=== PATIENT | female | born 1955 | race Caucasian/White ===

== ENCOUNTER 2017-02-09 11:17 | Emergency (ER) | payer OTHER ==
[~2017-02-09] VITALS: Ht 162.6 cm; Wt 75.3 kg
[~2017-02-09 11:17] MED LIST: ACET-1256 PO; ADVIN50/60 INH; ALBU1AER9 INH; ALBU1NEB10 INH; ASPI-435 PO; CLOP1TAB54 PO; COD1000C PO; FLUT0.15 NAE; LEVO1TAB33 PO; PRED10TA PO; VERA180T15 PO
[2017-02-09 11:20] VITALS: Ht 162.6 cm; Wt 75.3 kg
[2017-02-09] MEDS ORDERED: SODIUM CHLORIDE 0.9% 1000ML 1,000 ML IV STA (11:46)
[2017-02-09] MEDS ORDERED: IBUPROFEN 800 MG TAB PO STA ×2 (11:46→12:01)
[2017-02-09] MEDS ORDERED: VITA400C3 PO (12:04)
[2017-02-09] MEDS ORDERED: MONT1TAB3 PO (12:04)
[2017-02-09] MEDS ORDERED: CYAN500T PO (12:04)
[2017-02-09] MEDS ORDERED: ASCO10003 PO (12:04)
[2017-02-09] MEDS ORDERED: CHOL1000 PO (12:04)
[2017-02-09] MEDS ORDERED: CALC667C4 PO (12:04)
[2017-02-09] MEDS ORDERED: [UNRECOGNIZED DRUG - CODE] PO (12:06)
[2017-02-09 12:17] LABS: BASO % 0.2 %; BASO ABS # 0.02 K/uL (0-0.2); COMPLETE YES; EOS % 1.7 %; HEMATOCRIT 38.4 % (37-47); IG% 0.1 %; MEAN CELL VOLUME 85.5 fL (80-100); MEAN CORPUSCULAR HEMOGLOBIN 27.4 pg (25-34); MONO % 9.4 %; NEUT % 73.6 %; PLATELET COUNT 254 K/uL (130-400); RED BLOOD COUNT 4.49 M/uL (4.2-5.4); WHITE BLOOD COUNT 9.35 K/uL (4.8-10.8)
--- NOTE | 2017-02-09 12:34 | DIAGNOSTIC IMAGING REPORT ---
CHEST ONE VIEW PORTABLE CLINICAL HISTORY: cough, fevers COMPARISON STUDY: 12/23/2015 FINDINGS: The cardiac and mediastinal contours are normal. There is no evidence of focal pulmonary consolidation. There is no evidence of failure. No pleural effusions are visualized.[ IMPRESSION: No active disease in the chest. Electronically signed by: Omer Dewey M.D. 02/09/2017 12:33 PM Dictated Date/Time: 02/09/2017 12:32 PM
[2017-02-09 12:35] LABS: ALT/SGPT 31 U/L (12-78); AST/SGOT 11 U/L (15-37); BLOOD UREA NITROGEN 10 mg/dl (7-18); BUN/CREATININE RATIO 12.1 (10-20); CALCIUM 9.1 mg/dl (8.5-10.1); CARBON DIOXIDE 30 mmol/L (21-32); CHLORIDE 104 mmol/L (98-107); CREATININE 0.85 mg/dl (0.60-1.20); GLUCOSE 95 mg/dl (70-99); POTASSIUM 4.1 mmol/L (3.5-5.1); SODIUM 140 mmol/L (136-145)
[2017-02-09 12:40] LABS: ALB/GLOB RATIO 0.9 (0.9-2); ALKALINE PHOSPHATASE 112 U/L (45-117)
[2017-02-09] MEDS ORDERED: ACETAMINOPHEN 500 MG TAB PO STA (13:02)
[2017-02-09 13:57] LABS: URINE APPEARANCE CLEAR (CLEAR); URINE BILIRUBIN NEG (NEG); URINE COLOR YELLOW; URINE NITRITE NEG (NEG); URINE PH 7.5 (4.5-7.5); URINE SPECIFIC GRAVITY 1.018 (1.000-1.030); UROBILINOGEN NEG (NEG); ZZUR CULT IF INDIC CLEAN CATCH NO
[2017-02-09 13:58] LABS: MANUAL MICROSCOPIC REQUIRED? NO; REVIEW REQ? NO
--- NOTE | 2017-02-09 14:15 | EMERGENCY ROOM VISIT NOTE ---
History First contact with patient: 11:32 Chief Complaint: FEVER Stated Complaint: FEVER, SWELLING TO THROAT, CHEST DISCOMFORT History of Present Illness The patient is a 61 year old female who presents to the Emergency Room with complaints of flulike symptoms. The patient states that her symptoms started 3 days ago. She has had a sore throat, fever and body aches. The patient was seen at the [facility] walk-in clinic yesterday and had a flu test and strep test. She states she is unsure of the results of this testing. She was prescribed Tamiflu but states that she did not start this medication because her insurance will not cover it. She states that she has had some tightness in her chest. She states that she has been taking Tylenol every 4 hours for her symptoms and fever. She does report that she was up several times last night due to fevers and believes she may have increased frequency of urination. The patient has a mild cough but does have a history of asthma. She denies any headaches, neck pain, abdominal pain, nausea, vomiting or changes in bowel movements. She denies any shortness of breath. Review of Systems A complete 10-point Review of Systems was discussed with the patient, with pertinent positives and negatives listed in the History of Present Illness. All remaining Review of Systems questions can be considered negative unless otherwise specified. Past Medical/Surgical History Medical Problems: (1) Asthma (2) Dyslipidemia (3) GERD (gastroesophageal reflux disease) (4) Hypertension (5) Kidney stones (6) Mitral valve prolapse (7) Stroke Family History Diabetes mellitus FH: cancer FH: lung disease Hypertension Social History Smoking Status: Never Smoker Alcohol Use: none Housing Status: lives with family Occupation Status: employed, disabled Current/Historical Medications Scheduled Albuterol Soln (Ventolin Soln), 1 AMP INH Q4HR PRN Ascorbic Acid (Vitamin C), 1 TAB PO DAILY Aspirin (Aspirin 81), 1 TAB PO DAILY Calcium Acetate (Phoslo 667 Mg), 2 CAPSULES PO QAM Cholecalciferol (Vitamin D3), 1 TAB PO DAILY Clopidogrel Bisulfate (Plavix), 75 MG PO DAILY Cod Liver Oil (Cod Liver Oil 1000 mg), 1,000 MG PO DAILY Cyanocobalamin (Vitamin B-12), 500 MCG PO DAILY Fluticasone Prop/Salmeterol (Advair Diskus 500/50 60 Dose), 1 PUFF INH BID Fluticasone Propionate (Nasal) (Flonase Allergy Relief), 50 MCG KENDRA DAILY Montelukast Sodium (Singulair), 10 MG PO DAILY Phenol (Antiseptic) (Chloraseptic Gargle), 2 SPRAYS PO UD Verapamil Sust Rel (Calan Sr Ext Rel), 180 MG PO DAILY Vitamin E (Vitamin E 400 Iu), 800 INTER.UNIT PO DAILY Scheduled PRN Acetaminophen (Tylenol), 1,000 MG PO Q4H PRN for Pain Albuterol Sulfate (Proair Hfa), 2 PUFFS INH QID PRN for SOB/Wheezing Allergies Coded Allergies: Orphenadrine (Unverified Allergy, Severe, ANAPHYLAXIS, 02/09/17) Sodium Metabisulfite (Unverified Allergy, Severe, ANAPHYLAXIS, 02/09/17) Morphine (Verified Allergy, Unknown, heart problems, 02/09/17) Physical Exam Vital Signs Date Time Temp Pulse Resp B/P Pulse Ox O2 Delivery O2 Flow Rate FiO2 02/09/17 14:35 37.3 77 20 117/73 93 02/09/17 12:58 38.2 84 22 143/76 97 Room Air 02/09/17 12:20 79 02/09/17 11:20 37.9 95 18 141/87 98 Room Air Physical Exam VITALS: Vitals are noted on the nurse's note and reviewed by myself. Vital signs stable. GENERAL: This is a 61-year-old female, in no acute distress, nondiaphoretic, well-developed well-nourished. SKIN: The skin was without rashes, erythema, edema, or bruising. There is no tenting of the skin. Capillary reflex less than 2 seconds. HEAD: Normocephalic atraumatic. EARS: External auditory canals clear, tympanic membranes pearly miller without erythema or effusion bilaterally. EYES: Pupils equal round and reactive to light and accommodation. Conjunctivae without injection, sclerae without icterus. Extraocular movements intact. NOSE: Patent, turbinates without inflammation or discharge. No sinus tenderness. MOUTH: Mucous membranes moist. Tonsils are mildly erythematous without any significant swelling or exudate. NECK: Supple without nuchal rigidity. No lymphadenopathy. No meningismus. HEART: Regular rate and rhythm without murmurs gallops or rubs. LUNGS: Clear to auscultation bilaterally without wheezes, rales or rhonchi. No retractions or accessory muscle use. ABDOMEN: Soft, nontender to palpation.. NEURO: Patient was alert and oriented to person place and time. Medical Decision & Procedures ER Provider Diagnostic Interpretation: CHEST ONE VIEW PORTABLE CLINICAL HISTORY: cough, fevers COMPARISON STUDY: 12/23/2015 FINDINGS: The cardiac and mediastinal contours are normal. There is no evidence of focal pulmonary consolidation. There is no evidence of failure. No pleural effusions are visualized.[ IMPRESSION: No active disease in the chest. Laboratory Results 02/09/17 11:52 Red Blood Count 4.49, Mean Corpuscular Volume 85.5, Mean Corpuscular Hemoglobin 27.4, Mean Corpuscular Hemoglobin Concent 32.0, Mean Platelet Volume 10.0, Neutrophils (%) (Auto) 73.6, Lymphocytes (%) (Auto) 15.0, Monocytes (%) (Auto) 9.4, Eosinophils (%) (Auto) 1.7, Basophils (%) (Auto) 0.2, Neutrophils # (Auto) 6.88, Lymphocytes # (Auto) 1.40, Monocytes # (Auto) 0.88, Eosinophils # (Auto) 0.16, Basophils # (Auto) 0.02 02/09/17 11:52 Test 02/09/17 11:52 02/09/17 13:00 White Blood Count 9.35 K/uL (4.8-10.8) Red Blood Count 4.49 M/uL (4.2-5.4) Hemoglobin 12.3 g/dL (12.0-16.0) Hematocrit 38.4 % (37-47) Mean Corpuscular Volume 85.5 fL (80-100) Mean Corpuscular Hemoglobin 27.4 pg (25-34) Mean Corpuscular Hemoglobin Concent 32.0 g/dl (32-36) Platelet Count 254 K/uL (130-400) Mean Platelet Volume 10.0 fL (7.4-10.4) Neutrophils (%) (Auto) 73.6 % Lymphocytes (%) (Auto) 15.0 % Monocytes (%) (Auto) 9.4 % Eosinophils (%) (Auto) 1.7 % Basophils (%) (Auto) 0.2 % Neutrophils # (Auto) 6.88 K/uL (1.4-6.5) Lymphocytes # (Auto) 1.40 K/uL (1.2-3.4) Monocytes # (Auto) 0.88 K/uL (0.11-0.59) Eosinophils # (Auto) 0.16 K/uL (0-0.5) Basophils # (Auto) 0.02 K/uL (0-0.2) RDW Standard Deviation 43.9 fL (36.4-46.3) RDW Coefficient of Variation 14.1 % (11.5-14.5) Immature Granulocyte % (Auto) 0.1 % Immature Granulocyte # (Auto) 0.01 K/uL (0.00-0.02) Anion Gap 6.0 mmol/L (3-11) Est Creatinine Clear Calc Drug Dose 68.2 ml/min Estimated GFR () 85.1 Estimated GFR (Non- 73.4 BUN/Creatinine Ratio 12.1 (10-20) Calcium Level 9.1 mg/dl (8.5-10.1) Total Bilirubin 0.4 mg/dl (0.2-1) Aspartate Amino Transf (AST/SGOT) 11 U/L (15-37) Alanine Aminotransferase (ALT/SGPT) 31 U/L (12-78) Alkaline Phosphatase 112 U/L (45-117) Troponin I < 0.015 ng/ml (0-0.045) Total Protein 8.1 gm/dl (6.4-8.2) Albumin 3.9 gm/dl (3.4-5.0) Globulin 4.2 gm/dl (2.5-4.0) Albumin/Globulin Ratio 0.9 (0.9-2) Monoscreen NEG (NEG) Urine Color YELLOW Urine Appearance CLEAR (CLEAR) Urine pH 7.5 (4.5-7.5) Urine Specific [place] 1.018 (1.000-1.030) Urine Protein NEG (NEG) Urine Glucose (UA) NEG (NEG) Urine Ketones NEG (NEG) Urine Occult Blood NEG (NEG) Urine Nitrite NEG (NEG) Urine Bilirubin NEG (NEG) Urine Urobilinogen NEG (NEG) Urine Leukocyte Esterase TRACE (NEG) Urine WBC (Auto) 1-5 /hpf (0-5) Urine RBC (Auto) 0-4 /hpf (0-4) Urine Hyaline Casts (Auto) 0 /lpf (0-5) Urine Epithelial Cells (Auto) 5-10 /lpf (0-5) Urine Bacteria (Auto) NEG (NEG) Medications Administered Medications (Trade) Dose Ordered Sig/Pedrito Route Start Time Stop Time Status Last Admin Dose Admin Sodium Chloride (Nss 1000ml) 1,000 ml @ 999 mls/hr Q1H1M STAT IV 02/09/17 11:46 02/09/17 12:46 DC 02/09/17 11:54 999 MLS/HR Ibuprofen (Motrin Tab) 800 mg NOW STAT PO 02/09/17 12:01 02/09/17 12:02 DC 02/09/17 12:16 800 MG Acetaminophen (Tylenol Tab) 1,000 mg NOW STAT PO 02/09/17 13:02 02/09/17 13:03 DC 02/09/17 13:05 1,000 MG ECG Rate (beats per minute): 79 Rhythm: normal sinus Findings: no acute ischemic change, no ectopy Medical Decision Differential diagnosis includes influenza, strep pharyngitis, infectious mononucleosis, viral syndrome, pneumonia, among others. The patient was evaluated as above. Labs were drawn and IV access was obtained. Imaging studies were performed and read by radiology as above. The patient was medicated with 1 L normal saline solution, 800 mg ibuprofen and 1 g Tylenol. The patient was reassessed multiple times during their stay in the emergency department and remained in stable condition. The patient is a 61-year-old female who presents today complaining of flulike symptoms. I was able to obtain her records from [facility], which showed that the patient had negative flu and strep test yesterday. Labs today revealed no leukocytosis, anemia or concerning electrolyte abnormalities. Monospot was negative Urinalysis was not suggestive of infection. EKG was interpreted by myself and showed a normal sinus rhythm. Chest x-ray was unremarkable. The patient did feel better after IV hydration and antipyretics. Temperature was rechecked and was within normal limits. The patient likely has a viral illness , uncertain flu, strep and mono testing of all been negative. Conservative measures were discussed and the patient was instructed to follow-up with her primary care provider for further evaluation of these symptoms. She will return here for any worsening of her current condition or new/concerning symptoms. Based on the patient's presentation, lab results, and imaging studies, I feel the patient is stable for outpatient treatment. The patient's case was reviewed with Dr. Howell, ED attending physician, who agreed with my assessment and treatment plan. Discharge instructions were reviewed with the patient. The patient verbalized understanding of my assessment and treatment plan and was discharged home in good condition. Impression Primary Impression: Influenza-like symptoms Departure Information Dispostion Home / Self-Care Condition GOOD Referrals Rosey Davis, (PCP) Forms HOME CARE DOCUMENTATION FORM, IMPORTANT VISIT INFORMATION Patient Instructions My [facility] [address] Additional Instructions Rest and drink fluids. Continue Tylenol as needed for pain and fevers. Call your primary care provider to schedule a follow-up by the end of the week. Return to the emergency department with any new/concerning symptoms.
[2017-02-09 14:35] VITALS: BP 117/73; PULSE 77; TEMP 37.3; O2SAT 93
== END 2017-02-09 14:46 | disposition home or self-care (01) ==
LOC: C.EDB 11:19
DX: R50.9 Fever, unspecified (principal); J02.9 Acute pharyngitis, unspecified; I10 Essential (primary) hypertension; J45.909 Unspecified asthma, uncomplicated; K21.9 Gastro-esophageal reflux disease without esophagitis; E78.5 Hyperlipidemia, unspecified; Z86.73 Personal history of transient ischemic attack (TIA), and cerebral infarction without residual deficits; Z79.82 Long term (current) use of aspirin

== ENCOUNTER 2017-10-25 08:05 | Emergency (ER) | payer OTHER ==
[~2017-10-25] VITALS: Ht 162.6 cm; Wt 73.6 kg
[~2017-10-25 08:05] MED LIST changes: +ASCO10003 PO; +CALC667C4 PO; +CHOL1000 PO; +CYAN500T PO; -LEVO1TAB33 PO; +MONT1TAB3 PO; -PRED10TA PO; +VITA400C3 PO; +[UNRECOGNIZED DRUG - CODE] PO
[2017-10-25 08:11] VITALS: TEMP 37.5; Ht 162.6 cm; Wt 73.6 kg
[2017-10-25] MEDS ORDERED: ACETAMINOPHEN 500 MG TAB PO STA (08:31)
[2017-10-25] MEDS ORDERED: ALBUT/IPRATROP 3MG/0.5MG NEB 3 ML VIAL INH STA ×2 (08:31→09:44)
[2017-10-25] MEDS ORDERED: METHYLPREDNISOLONE 125 MG VIAL IV STA (08:31)
[2017-10-25 08:40] VITALS: O2SAT 96
--- NOTE | 2017-10-25 08:41 | EMERGENCY ROOM VISIT NOTE ---
History Report prepared by Lakeisha: Daniela Flowers Under the Supervision of: Dr. Zaki Friedman M.D. First contact with patient: 08:14 Chief Complaint: ILLNESS Stated Complaint: FEVER/HEADACHE/COLD/CHEST PAIN IN LEFT LUNG History of Present Illness The patient is a 62 year old female with a past medical history of Asthma , dyslipidemia, GERD, hypertension, mitral valve prolapse, 2 mini strokes who presents to the ED with a cc of a persistent productive cough beginning several days ago. Positive fever, headache. She currently rates her discomfort as a 9/ 10 in severity. The patient states that she is a nonsmoker. She states that she is on inhalers for her asthma. The patient states that she has been on Plavix since her Mini strokes. She states that she recently travelled to [place] for a mission trip. She denies any recent antibiotic use. Source of History: patient Onset: several days ago Position: other (global) Quality: other (productive cough) Timing: other (persistent) Associated Symptoms: + fevers, + headache Review of Systems See HPI for pertinent positives and negatives. A total of ten systems were reviewed and were otherwise negative. Past Medical & Surgical Medical Problems: (1) Asthma (2) Dyslipidemia (3) GERD (gastroesophageal reflux disease) (4) Hypertension (5) Kidney stones (6) Mitral valve prolapse (7) Stroke Family History Diabetes mellitus FH: cancer FH: lung disease Hypertension Social History Smoking Status: Never Smoker Alcohol Use: none Housing Status: lives with family Occupation Status: employed, disabled Current/Historical Medications Scheduled Albuterol Hfa (Ventolin Hfa), 2-4 PUFFS INH Q6H Ascorbic Acid (Vitamin C), 1 TAB PO DAILY Aspirin (Aspirin 81), 1 TAB PO DAILY Azithromycin (Zithromax), 250 MG PO DAILY Calcium Acetate (Phoslo 667 Mg), 2 CAPSULES PO QAM Cholecalciferol (Vitamin D3), 1 TAB PO DAILY Clopidogrel Bisulfate (Plavix), 75 MG PO DAILY Cod Liver Oil (Cod Liver Oil 1000 mg), 1,000 MG PO DAILY Cyanocobalamin (Vitamin B-12), 500 MCG PO DAILY Fluticasone Prop/Salmeterol (Advair Diskus 500/50 60 Dose), 1 PUFF INH BID Fluticasone Propionate (Nasal) (Flonase Allergy Relief), 50 MCG KENDRA DAILY Montelukast Sodium (Singulair), 10 MG PO DAILY Phenol (Antiseptic) (Chloraseptic Gargle), 2 SPRAYS PO UD Prednisone (Prednisone), 50 MG PO DAILY Vitamin E (Vitamin E 400 Iu), 800 INTER.UNIT PO DAILY Scheduled PRN Acetaminophen (Tylenol), 1,000 MG PO Q4H PRN for Pain Miscellaneous Medications Verapamil Sust Rel (Calan Sr Ext Rel), 120 MG PO Allergies Coded Allergies: Orphenadrine (Unverified Allergy, Severe, ANAPHYLAXIS, 10/25/17) Sodium Metabisulfite (Unverified Allergy, Severe, ANAPHYLAXIS, 10/25/17) Morphine (Verified Allergy, Unknown, heart problems, 10/25/17) Physical Exam Vital Signs Date Time Temp Pulse Resp B/P (MAP) Pulse Ox O2 Delivery O2 Flow Rate FiO2 10/25/17 11:06 79 18 120/71 96 Room Air 10/25/17 09:50 77 20 101/70 100 Nebulizer 10/25/17 09:00 79 22 130/72 98 Room Air 10/25/17 08:41 87 10/25/17 08:40 97 Room Air 10/25/17 08:40 96 Room Air 10/25/17 08:11 37.5 83 18 128/86 97 Room Air Physical Exam GENERAL: Awake, alert, well-appearing, NAD HENT: Normocephalic, atraumatic. EYES: Normal conjunctiva. Sclera non-icteric. NECK: Supple. No nuchal rigidity. FROM. RESPIRATORY: inspiratory and expiratory wheezes throughout, occasional rhonchi, crackles CARDIAC: RRR, no MRG ABDOMEN: Soft, NTND, BS+ MSK: No chest wall TTP, no LE edema NEURO: GCS 15, CN 2-12 intact, moves all 4s on command SKIN: No rash or jaundice noted. Medical Decision & Procedures ER Provider Diagnostic Interpretation: X-ray: Per my interpretation, radiologist review. CHEST ONE VIEW PORTABLE CLINICAL HISTORY: 62 years-old Female presenting with CHEST PAIN. TECHNIQUE: Portable upright AP view of the chest was obtained. COMPARISON: 02/09/2017. FINDINGS: Atherosclerosis of aortic arch. Mild tortuosity of the descending thoracic aorta. Cardiac silhouette normal in size. Lungs and pleural spaces clear. Osseous structures normal. Upper abdomen normal. IMPRESSION: 1. No acute cardiopulmonary disease. Electronically signed by: Lorenzo Nguyen M.D. 10/25/2017 9:05 AM Dictated Date/Time: 10/25/2017 9:05 AM Laboratory Results 10/25/17 08:45 Red Blood Count 4.34, Mean Corpuscular Volume 88.5, Mean Corpuscular Hemoglobin 28.1, Mean Corpuscular Hemoglobin Concent 31.8, Mean Platelet Volume 10.7, Neutrophils (%) (Auto) 50.5, Lymphocytes (%) (Auto) 28.8, Monocytes (%) (Auto) 16.8, Eosinophils (%) (Auto) 3.3, Basophils (%) (Auto) 0.3, Neutrophils # (Auto ) 1.99, Lymphocytes # (Auto) 1.13, Monocytes # (Auto) 0.66, Eosinophils # (Auto ) 0.13, Basophils # (Auto) 0.01 10/25/17 08:45 Test 10/25/17 08:45 White Blood Count 3.93 K/uL (4.8-10.8) Red Blood Count 4.34 M/uL (4.2-5.4) Hemoglobin 12.2 g/dL (12.0-16.0) Hematocrit 38.4 % (37-47) Mean Corpuscular Volume 88.5 fL (80-100) Mean Corpuscular Hemoglobin 28.1 pg (25-34) Mean Corpuscular Hemoglobin Concent 31.8 g/dl (32-36) Platelet Count 213 K/uL (130-400) Mean Platelet Volume 10.7 fL (7.4-10.4) Neutrophils (%) (Auto) 50.5 % Lymphocytes (%) (Auto) 28.8 % Monocytes (%) (Auto) 16.8 % Eosinophils (%) (Auto) 3.3 % Basophils (%) (Auto) 0.3 % Neutrophils # (Auto) 1.99 K/uL (1.4-6.5) Lymphocytes # (Auto) 1.13 K/uL (1.2-3.4) Monocytes # (Auto) 0.66 K/uL (0.11-0.59) Eosinophils # (Auto) 0.13 K/uL (0-0.5) Basophils # (Auto) 0.01 K/uL (0-0.2) RDW Standard Deviation 45.6 fL (36.4-46.3) RDW Coefficient of Variation 13.9 % (11.5-14.5) Immature Granulocyte % (Auto) 0.3 % Immature Granulocyte # (Auto) 0.01 K/uL (0.00-0.02) Prothrombin Time 10.7 SECONDS (9.0-12.0) Prothromb Time International Ratio 1.0 (0.9-1.1) Activated Partial Thromboplast Time 25.3 SECONDS (21.0-31.0) Partial Thromboplastin Ratio 1.0 Anion Gap 8.0 mmol/L (3-11) Est Creatinine Clear Calc Drug Dose 62.2 ml/min Estimated GFR () 77.8 Estimated GFR (Non- 67.1 BUN/Creatinine Ratio 15.8 (10-20) Calcium Level 8.7 mg/dl (8.5-10.1) Total Bilirubin 0.2 mg/dl (0.2-1) Direct Bilirubin mg/dl (0-0.2) Aspartate Amino Transf (AST/SGOT) 37 U/L (15-37) Alanine Aminotransferase (ALT/SGPT) 42 U/L (12-78) Alkaline Phosphatase 101 U/L (45-117) Troponin I < 0.015 ng/ml (0-0.045) Total Protein 7.7 gm/dl (6.4-8.2) Albumin 3.8 gm/dl (3.4-5.0) Lipase 127 U/L (73-393) Chemistry Specimen Hemolysis Laboratory results reviewed by me Medications Administered Medications (Trade) Dose Ordered Sig/Pedrito Route Start Time Stop Time Status Last Admin Dose Admin Albuterol/ Ipratropium (Duoneb) 3 ml NOW STAT INH 10/25/17 08:31 10/25/17 08:32 DC 10/25/17 09:15 3 ML Acetaminophen (Tylenol Tab) 1,000 mg NOW STAT PO 10/25/17 08:31 10/25/17 08:32 DC 10/25/17 08:59 1,000 MG Azithromycin (Zithromax Tab) 500 mg NOW ONCE PO 10/25/17 08:45 10/25/17 08:46 DC 10/25/17 08:59 500 MG Methylprednisolone Sodium Succinate (Solu-Medrol IV) 125 mg NOW STAT IV 10/25/17 08:31 10/25/17 08:32 DC 10/25/17 09:14 125 MG Albuterol/ Ipratropium (Duoneb) 3 ml ONE STAT INH 10/25/17 09:44 10/25/17 09:46 DC 10/25/17 09:46 3 ML Magnesium Sulfate (Magnesium Sulfate) 1 gm NOW STAT IV 10/25/17 09:44 10/25/17 09:46 DC 10/25/17 09:49 1 GM ECG Indication: chest pain Rate (beats per minute): 74 Rhythm: sinus rhythm Findings: T-wave inversion (V3. lead 3, not in contiguous leads), other ( normal intervals, normal axis, no other STS or TWI) Comparison ECG Date: 02/09/17 Change: no significant change ED Course 0819: The patient was evaluated in room B12A. A complete history and physical exam was performed. 1030: I reevaluated the patient and she is resting comfortably. I discussed the test results with her and I discussed the treatment plan. She verbalized complete understanding and agreement. She is ready to go home. Medical Decision Differential diagnosis: Etiologies such as cardiac ischemia, aortic dissection, pulmonary embolism, pneumonia, pneumothorax, musculoskeletal, infections, pericarditis, myocarditis , esophageal rupture, gastrointestinal, as well as others were entertained. The patient is a 62 year old female with a past medical history of Asthma , dyslipidemia, GERD, hypertension, mitral valve prolapse, 2 mini strokes who presents to the ED with a cc of a persistent productive cough beginning several days ago. Patient was seen and evaluated the bedside. Patient was complaining of some left-sided chest discomfort with a productive sputum. Patient is a history of asthma. Patient did have a recent plane flight. Patient denies any prior history of DVT or PE. Patient does take Plavix daily for prior history of 2 mini strokes without any deficits. Patient has a normal neurologic exam. I believe that given her history and physical is most likely infectious in nature she has had a productive cough. Patient's chest x-ray was clear. Patient did receive DuoNeb's, methylprednisolone, and Zithromax. Patient also did receive magnesium. Patient did so some mild leukopenia. Patient's other blood work is fairly unremarkable. Patient had a nonischemic EKG. Patient's chest x-ray was clear. Upon reassessment the patient's wheezing had improved. The patient was not tachycardic, nor tachypneic, nor hypoxic. She suitable for outpatient follow-up and treatment. Given the patient's history and physical along with a nonischemic EKG and a negative troponin less likely ACS. Wells 0. Less likely PE. Patient was given strict follow-up, discharge, and return precautions. All questions were answered. Patient was deemed suitable for outpatient follow-up at this time. Patient agreed with the plan of care and was safely discharged home. Medication Reconcilliation Current Medication List: was personally reviewed by me Blood Pressure Screening Patient's blood pressure: Normal blood pressure Blood pressure disposition: Did not require urgent referral Impression Primary Impression: Asthma Additional Impression: Bronchitis Scribe Attestation The scribe's documentation has been prepared under my direction and personally reviewed by me in its entirety. I confirm that the note above accurately reflects all work, treatment, procedures, and medical decision making performed by me. Departure Information Dispostion Home / Self-Care Prescriptions Azithromycin (Zithromax) 250 Mg Tab 250 MG PO DAILY for 4 Days, #4 TAB Prov: Zaki Friedman M.D. 10/25/17 Prednisone (PREDNISONE) 50 Mg Tab 50 MG PO DAILY for 4 Days, #4 TAB Prov: Zaki Friedman M.D. 10/25/17 Referrals Rosey Davis DO (PCP) Forms HOME CARE DOCUMENTATION FORM, IMPORTANT VISIT INFORMATION, WORK / SCHOOL INSTRUCTIONS Patient Instructions Asthma - [facility], Bronchitis Acute, My [facility] Additional Instructions Please return to the emergency department if you have worsening or recurrent symptoms not amenable to at-home treatment. Please call for a follow-up appointment with her primary care physician. Please take your medications as prescribed. If you have other concerns and/or complaints please feel free to also call your primary care physician's office or return the ED for further evaluation, management, and treatment. You may take tylenol 650 mg every 6 hours as needed for pain. Consider using your inhaler taking 2 puffs every 6 hours the first day, then one puff every 6 hours the second day, then 1 puffs every 4 hours the third day, and then 1 puff every 6 hours the fourth day. Take your medications as prescribed. If taking an antibiotic consider taking a probiotic and/or eating yogurt, but at the least, please take with food as it can cause upset stomach. When taking your steroids please consider taking them in the morning and with food as they may cause some upset stomach and may make you more energetic. You have been examined and treated today on an emergency basis only. This is not a substitute for, or an effort to provide, complete comprehensive medical care. It is impossible to recognize and treat all injuries or illnesses in a single emergency department visit. It is therefore important that you follow up closely with [facility], your PCP, and/or your specialist(s). Call as soon as possible for an appointment. Thank you for your time and consideration. I look forward to speaking with you again soon. Please don't hesitate to call us if you have any questions. Problem Qualifiers Primary Impression: Asthma Asthma severity: mild Asthma persistence: intermittent Asthma complication type: with acute exacerbation Qualified Codes: J45.21 - Mild intermittent asthma with (acute) exacerbation
[2017-10-25] MEDS ORDERED: AZITHROMYCIN 250 MG TAB PO ONE (08:45)
[2017-10-25 09:06] LABS: BASO % 0.3 %; BASO ABS # 0.01 K/uL (0-0.2); COMPLETE YES; EOS % 3.3 %; HEMATOCRIT 38.4 % (37-47); IG% 0.3 %; LYMPH % 28.8 %; LYMPH ABS # 1.13 K/uL (1.2-3.4); MEAN CELL VOLUME 88.5 fL (80-100); MEAN CORPUSCULAR HEMOGLOBIN 28.1 pg (25-34); MEAN CORPUSCULAR HGB CONC 31.8 g/dl (32-36); MEAN PLATELET VOLUME 10.7 fL (7.4-10.4); MONO % 16.8 %; NEUT % 50.5 %; PLATELET COUNT 213 K/uL (130-400); RED BLOOD COUNT 4.34 M/uL (4.2-5.4); WHITE BLOOD COUNT 3.93 K/uL (4.8-10.8)
--- NOTE | 2017-10-25 09:06 | DIAGNOSTIC IMAGING REPORT ---
CHEST ONE VIEW PORTABLE CLINICAL HISTORY: 62 years-old Female presenting with CHEST PAIN. TECHNIQUE: Portable upright AP view of the chest was obtained. COMPARISON: 02/09/2017. FINDINGS: Atherosclerosis of aortic arch. Mild tortuosity of the descending thoracic aorta. Cardiac silhouette normal in size. Lungs and pleural spaces clear. Osseous structures normal. Upper abdomen normal. IMPRESSION: 1. No acute cardiopulmonary disease. Electronically signed by: Lorenzo Nguyen M.D. 10/25/2017 9:05 AM Dictated Date/Time: 10/25/2017 9:05 AM
[2017-10-25 09:17] LABS: PROTHROMBIN TIME (PATIENT) 10.7 SECONDS (9.0-12.0)
[2017-10-25] MEDS ORDERED: VERA120T2 PO (09:20)
[2017-10-25] MEDS ORDERED: VNTHFA/IN INH (09:20)
[2017-10-25] MEDS ORDERED: MAGNESIUM SULFATE 1GM / D5W 1 GM BAG IV STA (09:44)
[2017-10-25 09:57] LABS: ALKALINE PHOSPHATASE 101 U/L (45-117); ALT/SGPT 42 U/L (12-78); AST/SGOT 37 U/L (15-37); BLOOD UREA NITROGEN 14 mg/dl (7-18); BUN/CREATININE RATIO 15.8 (10-20); CALCIUM 8.7 mg/dl (8.5-10.1); CARBON DIOXIDE 25 mmol/L (21-32); CHLORIDE 105 mmol/L (98-107); CREATININE 0.91 mg/dl (0.60-1.20); GLUCOSE 99 mg/dl (70-99); POTASSIUM 4.2 mmol/L (3.5-5.1); SODIUM 138 mmol/L (136-145)
[2017-10-25] MEDS ORDERED: PRED50TA PO (10:12)
[2017-10-25] MEDS ORDERED: AZIT250T PO (10:12)
[2017-10-25 11:06] VITALS: BP 120/71; PULSE 79; O2SAT 96
== END 2017-10-25 11:24 | disposition home or self-care (01) ==
LOC: C.EDB 08:07
DX: J45.21 Mild intermittent asthma with (acute) exacerbation (principal); J40 Bronchitis, not specified as acute or chronic; E78.5 Hyperlipidemia, unspecified; I10 Essential (primary) hypertension; K21.9 Gastro-esophageal reflux disease without esophagitis; I34.1 Nonrheumatic mitral (valve) prolapse; Z86.73 Personal history of transient ischemic attack (TIA), and cerebral infarction without residual deficits; Z79.01 Long term (current) use of anticoagulants; Z79.82 Long term (current) use of aspirin; Z83.3 Family history of diabetes mellitus; Z82.49 Family history of ischemic heart disease and other diseases of the circulatory system

== ENCOUNTER 2018-01-23 14:35 | Emergency (ER) | payer OTHER ==
[~2018-01-23] VITALS: Ht 162.6 cm; Wt 74.6 kg
[~2018-01-23 14:35] MED LIST changes: -ALBU1AER9 INH; -ALBU1NEB10 INH; +VERA120T2 PO; -VERA180T15 PO; +VNTHFA/IN INH
[2018-01-23 14:41] VITALS: TEMP 36.8; Ht 162.6 cm; Wt 74.6 kg
--- NOTE | 2018-01-23 15:17 | DIAGNOSTIC IMAGING REPORT ---
CHEST ONE VIEW PORTABLE CLINICAL HISTORY: 62 years-old Female presenting with CHEST PAIN. TECHNIQUE: Portable upright AP view of the chest was obtained. COMPARISON: 10/25/2017. FINDINGS: Atherosclerosis of the aortic arch. Cardiac silhouette top normal in size. Lungs and pleural spaces clear. Osseous structures normal. Upper abdomen normal. IMPRESSION: 1. No acute cardiopulmonary disease. Electronically signed by: Lorenzo Nguyen M.D. 01/23/2018 3:15 PM Dictated Date/Time: 01/23/2018 3:15 PM
--- NOTE | 2018-01-23 15:26 | EMERGENCY ROOM VISIT NOTE ---
History Report prepared by Lakeisha: Azael Ortiz Under the Supervision of: Dr. Missael Hsu M.D. First contact with patient: 14:56 Chief Complaint: CHEST PAIN Stated Complaint: CHEST PAIN - TOLD TO COME IN BY PCP Nursing Triage Summary: Patient presents with c/o left sided chest pain that radiates into side and back Referred to ED by PCP States pain began 5 days ago History of Present Illness The patient is a 62 year old female who presents to the Emergency Room with complaints of intermittent chest pain starting 5 days ago that radiates into her left side and her back. The patient states that she last had her chest pain this morning around noon today. The patient states that the pain comes on suddenly and then gets better, and it takes a while for the pain to totally go away. The patient states that the pain has gotten better with Tylenol and aspirin. She additionally notes that this morning she had some weakness, and she feels feverish. She additionally is complaining of some right ankle pain, and she notes that she fell three weeks ago. The patient has a history of a mitral valve prolapse, a pneumothorax, kidney stone, asthma, and TIA. She denies any history of heart attacks. The patient states that she took her Plavix this morning as well as her blood pressure medications and her vitamins. She reports that she called her PCP this morning, and they told her to come to the ED for evaluated for her chest pain. Pt denies LOC, headache, chills, diaphoresis, visual changes, neck pain, breathing difficulties, nausea, vomiting , back pain, melena, hematochezia, urinary symptoms, numbness, lymphadenopathy, rash, or other complaints. Source of History: patient Onset: 5 days ago Position: chest Timing: intermittent Modifying Factors (Relieving): tylenol, other (aspirin) Associated Symptoms: + fevers, + back pain, + weakness Note: Associated symptoms: left side pain. Review of Systems See HPI for pertinent positives and negatives. A total of ten systems were reviewed and were otherwise negative. Past Medical & Surgical Medical Problems: (1) Asthma (2) Dyslipidemia (3) GERD (gastroesophageal reflux disease) (4) Hypertension (5) Kidney stones (6) Mitral valve prolapse (7) Stroke Family History Diabetes mellitus FH: cancer FH: lung disease Hypertension Social History Smoking Status: Never Smoker Alcohol Use: none Housing Status: lives with family Occupation Status: employed, disabled Current/Historical Medications Scheduled Albuterol Hfa (Ventolin Hfa), 2-4 PUFFS INH Q6H Ascorbic Acid (Vitamin C), 1 TAB PO DAILY Aspirin (Aspirin 81), 1 TAB PO DAILY Calcium Acetate (Phoslo 667 Mg), 2 CAPSULES PO QAM Cholecalciferol (Vitamin D3), 1 TAB PO DAILY Clopidogrel Bisulfate (Plavix), 75 MG PO DAILY Cod Liver Oil (Cod Liver Oil 1000 mg), 1,000 MG PO DAILY Cyanocobalamin (Vitamin B-12), 500 MCG PO DAILY Fluticasone Prop/Salmeterol (Advair Diskus 500/50 60 Dose), 1 PUFF INH BID Fluticasone Propionate (Nasal) (Flonase Allergy Relief), 50 MCG KENDRA DAILY Montelukast Sodium (Singulair), 10 MG PO DAILY Omeprazole (Prilosec), 20 MG PO DAILY Pravastatin Sodium (Pravastatin Sodium), 40 MG PO DAILY Tiotropium [place] (Spiriva Respimat), 2 PUFFS INH DAILY Verapamil HCl (Verapamil HCl ER), 180 MG PO DAILY Vitamin E (Vitamin E 400 Iu), 800 INTER.UNIT PO DAILY Scheduled PRN Acetaminophen (Tylenol), 1,000 MG PO Q4H PRN for Pain Naproxen Sodium (Naprosyn Ds), 550 MG PO BID PRN for Pain Miscellaneous Medications Verapamil Sust Rel (Calan Sr Ext Rel), 120 MG PO Allergies Coded Allergies: Orphenadrine (Unverified Allergy, Severe, ANAPHYLAXIS, 01/23/18) Sodium Metabisulfite (Unverified Allergy, Severe, ANAPHYLAXIS, 01/23/18) Morphine (Verified Allergy, Unknown, heart problems, 01/23/18) Physical Exam Vital Signs Date Time Temp Pulse Resp B/P (MAP) Pulse Ox O2 Delivery O2 Flow Rate FiO2 01/23/18 18:27 67 20 120/72 98 Room Air 01/23/18 17:30 63 20 141/67 98 Room Air 01/23/18 16:27 64 01/23/18 15:52 97 Room Air 01/23/18 15:42 66 18 130/79 97 Room Air 01/23/18 15:40 96 Room Air 01/23/18 14:41 36.8 80 16 136/85 98 Room Air Physical Exam GENERAL: Awake, alert, well-appearing, in no distress HENT: Normocephalic, atraumatic. Oropharynx unremarkable. EYES: Normal conjunctiva. Sclera non-icteric. NECK: Supple. No nuchal rigidity. FROM. No masses. RESPIRATORY: Clear to auscultation. No wheezes. No rales. Normal respiratory effort. CARDIAC: Normal rate. Normal rhythm. No murmurs. No rubs. Extremities warm and well perfused. Pulses equal. No JVD. GI: Soft, non-distended. No tenderness to palpation. No rebound or guarding. No masses. RECTAL: Deferred. MUSCULOSKELETAL: Atraumatic. Chest examination reveals left anterolateral rib tenderness. The back is symmetrical on inspection without obvious abnormality. There is no CVA tenderness to palpation. No joint edema. Tenderness over the right lateral malleolus. LOWER EXTREMITIES: Calves are equal size bilaterally and non-tender. No edema. No discoloration. NEURO: Normal sensorium. No sensory or motor deficits noted. SKIN: No rash or jaundice noted. Medical Decision & Procedures ER Provider Diagnostic Interpretation: Radiology results as stated below per my review and radiologist interpretation: CHEST ONE VIEW PORTABLE CLINICAL HISTORY: 62 years-old Female presenting with CHEST PAIN. TECHNIQUE: Portable upright AP view of the chest was obtained. COMPARISON: 10/25/2017. FINDINGS: Atherosclerosis of the aortic arch. Cardiac silhouette top normal in size. Lungs and pleural spaces clear. Osseous structures normal. Upper abdomen normal. IMPRESSION: 1. No acute cardiopulmonary disease. Electronically signed by: Lorenzo Nguyen M.D. 01/23/2018 3:15 PM Dictated Date/Time: 01/23/2018 3:15 PM R ANKLE MIN 3 VIEWS ROUTINE CLINICAL HISTORY: 62 years-old Female presenting with fell, right lateral malleolus pain, twisting injury. TECHNIQUE: Frontal, mortise, and lateral views of the right ankle were obtained. COMPARISON: None. FINDINGS: Ankle mortise intact. Prominent anterior osteophyte at the tibial plafond. Prominent enthesophyte at the insertion of the Achilles tendon. No acute fracture or malalignment. No radiographic soft tissue abnormality. IMPRESSION: No acute osseous injury. Degenerative changes as above. Electronically signed by: Lorenzo Nguyen M.D. 01/23/2018 3:36 PM Dictated Date/Time: 01/23/2018 3:34 PM Laboratory Results 01/23/18 15:40 Red Blood Count 4.03, Mean Corpuscular Volume 87.8, Mean Corpuscular Hemoglobin 28.8, Mean Corpuscular Hemoglobin Concent 32.8, Mean Platelet Volume 10.4, Neutrophils (%) (Auto) 38.8, Lymphocytes (%) (Auto) 45.1, Monocytes (%) (Auto) 11.7, Eosinophils (%) (Auto) 3.8, Basophils (%) (Auto) 0.2, Neutrophils # (Auto ) 1.97, Lymphocytes # (Auto) 2.28, Monocytes # (Auto) 0.59, Eosinophils # (Auto ) 0.19, Basophils # (Auto) 0.01 01/23/18 15:40 Test 01/23/18 15:40 01/23/18 15:48 01/23/18 17:32 White Blood Count 5.06 K/uL (4.8-10.8) Red Blood Count 4.03 M/uL (4.2-5.4) Hemoglobin 11.6 g/dL (12.0-16.0) Hematocrit 35.4 % (37-47) Mean Corpuscular Volume 87.8 fL (80-100) Mean Corpuscular Hemoglobin 28.8 pg (25-34) Mean Corpuscular Hemoglobin Concent 32.8 g/dl (32-36) Platelet Count 237 K/uL (130-400) Mean Platelet Volume 10.4 fL (7.4-10.4) Neutrophils (%) (Auto) 38.8 % Lymphocytes (%) (Auto) 45.1 % Monocytes (%) (Auto) 11.7 % Eosinophils (%) (Auto) 3.8 % Basophils (%) (Auto) 0.2 % Neutrophils # (Auto) 1.97 K/uL (1.4-6.5) Lymphocytes # (Auto) 2.28 K/uL (1.2-3.4) Monocytes # (Auto) 0.59 K/uL (0.11-0.59) Eosinophils # (Auto) 0.19 K/uL (0-0.5) Basophils # (Auto) 0.01 K/uL (0-0.2) RDW Standard Deviation 45.3 fL (36.4-46.3) RDW Coefficient of Variation 14.0 % (11.5-14.5) Immature Granulocyte % (Auto) 0.4 % Immature Granulocyte # (Auto) 0.02 K/uL (0.00-0.02) Anion Gap 7.0 mmol/L (3-11) Est Creatinine Clear Calc Drug Dose 72.1 ml/min Estimated GFR () 92.3 Estimated GFR (Non- 79.7 BUN/Creatinine Ratio 21.1 (10-20) Calcium Level 9.2 mg/dl (8.5-10.1) Total Bilirubin 0.3 mg/dl (0.2-1) Direct Bilirubin < 0.1 mg/dl (0-0.2) Aspartate Amino Transf (AST/SGOT) 17 U/L (15-37) Alanine Aminotransferase (ALT/SGPT) 28 U/L (12-78) Alkaline Phosphatase 99 U/L (45-117) Total Creatine Kinase 176 U/L (26-192) Creatine Kinase MB 2.3 ng/ml (0.5-3.6) Creatine Kinase MB Ratio 1.3 (0-3.0) Total Protein 7.5 gm/dl (6.4-8.2) Albumin 3.7 gm/dl (3.4-5.0) Lipase 172 U/L (73-393) Bedside D-Dimer 404 ng/mlFEU (0-450) Bedside Troponin I < 0.030 ng/ml (0-0.045) Laboratory results reviewed by me ECG Per My Interpretation Indication: chest pain Rate (beats per minute): 70 Rhythm: normal sinus Findings: no acute ischemic change, no ectopy, other (Normal intervals) ED Course 1508: The patient was evaluated in room C10. A complete history and physical exam was performed. 1648: I reevaluated and updated the patient. She is going to get a repeat troponin 1752: I discussed the patient's case with Dr. Scott Elkins Cardiology, and he said that it is very reasonable to do an outpatient work up, and she can call the office to arrange her stress test as an outpatient. 1806: I reevaluated the patient. Discussed results and discharge instructions: she verbalized understanding and agreement. The patient is ready for discharge and will follow up with her PCP. Medical Decision Prior records/ancillary studies reviewed. Triage Nursing notes reviewed and agree them. The patient's history was concerning for intermittent chest pain. Differential diagnosis: Etiologies such as musculoskeletal, cardiac ischemia, aortic dissection, pulmonary embolism, pneumonia, pneumothorax, infections, pericarditis, myocarditis, esophageal rupture, gastrointestinal, as well as others were entertained. Physical examination: As above. ER treatment provided: No medication given On reassessment the patient felt well. Diagnostic interpretation by me: The electrocardiogram was negative for pathologic change. The labs revealed an unremarkable CBC and chemistry panel. LFTs and lipase negative. A d-dimer was performed and it was negative. Based on Wells criteria and a negative dimer no further imaging for PE was performed. Troponin completely negative 2. Imaging studies: Chest x-ray as above The patient has atypical chest pain. She has pain that does reproduce with palpation of the ribs. She was pain-free until the palpation. On reassessment she was doing well without any symptoms. Consultation: A consultation was placed with the copper plater on-call, Dr. Chavez. He agreed with expedited outpatient workup and asked for her to contact her primary office tomorrow to set up a stress test to the cardiology office. The patient feels very comfortable with this plan. If she worsens in any way she will come back. She will continue her current medications. I gave my usual and customary discussion regarding this issue. By the evaluation outlined above other emergent etiologies such as those listed in the differential, as well as others, were deemed relatively unlikely. The patient was educated about the findings as listed above. All questions were answered and the patient was pleased with the treatment. Return instructions were outlined and the patient was discharged in stable condition. The patient was referred to her PCP and cardiology for follow-up for a recheck of the current condition. Medication Reconcilliation Current Medication List: was personally reviewed by me Blood Pressure Screening Patient's blood pressure: Elevated blood pressure Blood pressure disposition: Referred to PCP Consults Time Called: 174 Consulting Physician: Dr. Scott Elkins Cardiology Returned Call: 175 I discussed the patient's case with Dr. Scott Elkins Cardiology, and he said that it is very reasonable to do an outpatient work up, and she can call the office to arrange her stress test as an outpatient. Impression Primary Impression: Left sided chest pain Scribe Attestation The scribe's documentation has been prepared under my direction and personally reviewed by me in its entirety. I confirm that the note above accurately reflects all work, treatment, procedures, and medical decision making performed by me. Departure Information Dispostion Home / Self-Care Referrals Rosey Davis DO (PCP) Forms Call Back Authorization, HOME CARE DOCUMENTATION FORM, IMPORTANT VISIT INFORMATION Patient Instructions My [facility] Additional Instructions CHEST PAIN INSTRUCTIONS: Acetaminophen(Tylenol) may be used for fever or pain. Use 1000mg every six hours as needed. Avoid using more than 4000mg in a 24 hour period. Rest and drink plenty of fluids as tolerated. Continue current medications. Avoid strenuous activities and anything that worsens your pain. Resume normal activities once your symptoms resolve. Return to the ER immediately for worsening or persistent chest pain, abdominal pain, vomiting, fevers, chest pains, difficulty breathing, worsening of your condition, or as needed. Follow up with your primary physician tomorrow for a recheck of your current condition and to arrange an outpatient stress test this week. Tell the automobile bumper straightener that cardiology was aware of your ER visit and wants a stress test arranged.
--- NOTE | 2018-01-23 15:38 | DIAGNOSTIC IMAGING REPORT ---
R ANKLE MIN 3 VIEWS ROUTINE CLINICAL HISTORY: 62 years-old Female presenting with fell, right lateral malleolus pain, twisting injury. TECHNIQUE: Frontal, mortise, and lateral views of the right ankle were obtained. COMPARISON: None. FINDINGS: Ankle mortise intact. Prominent anterior osteophyte at the tibial plafond. Prominent enthesophyte at the insertion of the Achilles tendon. No acute fracture or malalignment. No radiographic soft tissue abnormality. IMPRESSION: No acute osseous injury. Degenerative changes as above. Electronically signed by: Lorenzo Nguyen M.D. 01/23/2018 3:36 PM Dictated Date/Time: 01/23/2018 3:34 PM
[2018-01-23 15:40] VITALS: O2SAT 96
[2018-01-23 15:57] LABS: BASO % 0.2 %; BASO ABS # 0.01 K/uL (0-0.2); EOS % 3.8 %; EOS ABS # 0.19 K/uL (0-0.5); HEMATOCRIT 35.4 % (37-47); HEMOGLOBIN 11.6 g/dL (12.0-16.0); IG# 0.02 K/uL (0.00-0.02); LYMPH % 45.1 %; LYMPH ABS # 2.28 K/uL (1.2-3.4); MEAN CELL VOLUME 87.8 fL (80-100); MEAN CORPUSCULAR HEMOGLOBIN 28.8 pg (25-34); MEAN CORPUSCULAR HGB CONC 32.8 g/dl (32-36); MEAN PLATELET VOLUME 10.4 fL (7.4-10.4); MONO % 11.7 %; MONO ABS # 0.59 K/uL (0.11-0.59); NEUT % 38.8 %; NEUT ABS # 1.97 K/uL (1.4-6.5); PLATELET COUNT 237 K/uL (130-400); RED CELL DISTRIBUTION WIDTH SD 45.3 fL (36.4-46.3); WHITE BLOOD COUNT 5.06 K/uL (4.8-10.8)
[2018-01-23] MEDS ORDERED: VRPSR180 PO (16:13)
[2018-01-23] MEDS ORDERED: TIOT1AER2 INH (16:13)
[2018-01-23] MEDS ORDERED: OMEP20CA9 PO (16:13)
[2018-01-23] MEDS ORDERED: PRAV40TA2 PO (16:13)
[2018-01-23] MEDS ORDERED: NAPR-1159 PO (16:13)
[2018-01-23 16:16] LABS: ALBUMIN 3.7 gm/dl (3.4-5.0); ALT/SGPT 28 U/L (12-78); BLOOD UREA NITROGEN 17 mg/dl (7-18); CALCIUM 9.2 mg/dl (8.5-10.1); CARBON DIOXIDE 28 mmol/L (21-32); CREATININE 0.79 mg/dl (0.60-1.20); GLUCOSE 96 mg/dl (70-99); LIPASE 172 U/L (73-393); POTASSIUM 3.6 mmol/L (3.5-5.1); SODIUM 139 mmol/L (136-145)
[2018-01-23 16:21] LABS: ALKALINE PHOSPHATASE 99 U/L (45-117); AST/SGOT 17 U/L (15-37); CKMB 2.3 ng/ml (0.5-3.6); TOTAL PROTEIN 7.5 gm/dl (6.4-8.2)
[2018-01-23 18:27] VITALS: BP 120/72; PULSE 67; O2SAT 98
== END 2018-01-23 18:47 | disposition home or self-care (01) ==
LOC: C.EDB 14:36 → C.EDC 18:47
DX: R07.89 Other chest pain (principal); R07.81 Pleurodynia; M25.571 Pain in right ankle and joints of right foot; W19.XXXA Unspecified fall, initial encounter; I10 Essential (primary) hypertension; J45.909 Unspecified asthma, uncomplicated; K21.9 Gastro-esophageal reflux disease without esophagitis; E78.5 Hyperlipidemia, unspecified; I34.1 Nonrheumatic mitral (valve) prolapse; Z79.82 Long term (current) use of aspirin; Z79.02 Long term (current) use of antithrombotics/antiplatelets; Z87.442 Personal history of urinary calculi; Z86.73 Personal history of transient ischemic attack (TIA), and cerebral infarction without residual deficits; Z83.3 Family history of diabetes mellitus; Z82.49 Family history of ischemic heart disease and other diseases of the circulatory system; Z83.6 Family history of other diseases of the respiratory system; Z80.9 Family history of malignant neoplasm, unspecified; Z88.8 Allergy status to other drugs, medicaments and biological substances; Z91.048 Other nonmedicinal substance allergy status; Z88.6 Allergy status to analgesic agent

== ENCOUNTER 2021-09-04 19:17 | Inpatient (IN) ==
[2021-09-04 19:39] LABS: Appearance Urine Clear (Clear); Bacteria Urine Automated Negative (Negative); Bilirubin Urine Negative (Negative); Blood Urine Negative (Negative); Cast Urine Automated 0 /lpf (0-5); Color Urine Yellow; Glucose Urine UA Negative (Negative); Ketones Urine Negative (Negative); Leukocyte Esterase Urine 2+ (Negative); Nitrite Urine Negative (Negative); Protein Urine Negative (Negative); RBC Urine Automated 0-4 /hpf (0-4); Specific Gravity Urine 1.013 (1.000-1.030); Urobilinogen Urine Negative (Negative)
[2021-09-04] MEDS ORDERED: SODIUM CHLORIDE 0.9% 1000ML 1,000 ML IV ONE (22:10)
--- NOTE | 2021-09-04 22:28 | Emergency Department Note ---
Impression & Plan Abdominal pain, LLQ, Diverticulitis large intestine, Allergic reaction ED Provider Note Provider: Marc Brito MD DATE OF SERVICE: 09/04/2021 CHIEF COMPLAINT: Lower abdominal pain HISTORY OF PRESENT ILLNESS: Patient is a 66-year-old female history of kidney stones, hypertension, and CVA presenting here today reporting onset 2 days ago on Tuesday morning of some pain left lower quadrant is worsening. Patient states she is really not had much to eat or drink besides a few crackers today. Denies significant nausea or vomiting however. States she has had some urinary frequency but little output. Patient states he tried some Azo this morning as well as fluids and cranberry juice but this did not seem to help things. Patient reports a history of significant kidney stone requiring surgery in the distant past. Denies any fever or chest pain. Denies shortness of breath. No trauma reported. No pain radiating down the leg.Patient states she did try multiple doses of Tylenol last night last dose around noon today took at least three 1 g doses overnight. REVIEW OF SYSTEMS: A total of 10 review of systems was obtained and negative except as stated above in the HPI. PAST MEDICAL HISTORY: As noted above MEDICATIONS: Reviewed home medications SOCIAL HISTORY: Works at [employer] PHYSICAL EXAM: GENERAL: alert and oriented in no acute distress on stretcher Head: normocephalic and atraumatic EYES: No injection, discharge or icterus. NECK: Trachea midline. LUNGS: Airway patent. No retractions. Breath sounds clear HEART: Regular rate and rhythm. No chest wall tenderness ABDOMEN: Soft with tenderness in the left lower quadrant. No right-sided abdominal tenderness. Some radiation of the pain/tenderness to left flank SKIN: Acyanotic, warm, dry, without rashes EXTREMITIES: Without swelling, tenderness or deformity NEUROLOGICAL: No focal deficits. No aphasia. No facial droop or slurred speech. PDMP was checked without noted issue. Patient's laboratory studies and imaging reviewed. Differential includes Appendicitis, ovarian cyst, ovarian torsion, TOA, PID, infections, diverticulitis, UTI, obstruction, mesenteric ischemia, aortic pathology, inflammatory bowel disease, renal colic, PUD, pancreatitis, biliary pathology, hernia, volvulus, constipation, as well as other pathologies. IMPRESSION/MEDICAL DECISION MAKING: Patient with history of kidney stone now with pain in left lower quadrant some radiation of left flank and some urinary symptoms. Urinalysis questionable for infection but no blood noted. Patient did try Azo and cranberry juice and fluids earlier. Denies nausea or vomiting. Claims pain medication initially. Patient does not wish for further pain medicine on initial evaluation and wished to abstain from Tylenol she took a fair amount overnight. Doubt a significant overdose and this was unintentional but will avoid Tylenol at this point. Patient does not appear grossly septic at this time and is afebrile. Given some fluid hydration. CT the abdomen pelvis was ordered to look for possible kidney stones, diverticulitis, or other pathology causing her symptoms. Lack of radiation down the leg does not seem consistent with sciatica or cauda equina. Blood work here without significant leukocytosis and mild anemia. No significant lecture light abnormalities or evidence of transaminitis or hepatitis. CT of the abdomen pelvis per radiology as detailed below shows finding consistent with uncomplicated diverticulitis. Updated patient and her sister at bedside. Patient still with some pain was finally agreeable to except on Toradol. Given and an empiric dose of ceftriaxone here for broad antimicrobial coverage; she has tolerated amoxicillin before without issue. On reassessment to determine the patient was comfortable to go home, the patient was complaining some itching on her throat and swelling of her lips. The ceftriaxone was about half administered and was stopped by myself immediately on the pump. Benadryl and small amount of Solu-Medrol was ordered for any allergic reaction component to this. Patient declined Solu-Medrol but after the Benadryl states her itching and throat discomfort was improving. Patient did have some dizziness sensation with the Benadryl. Denies any nausea or difficulty breathing. Patient has been on NSAIDs before but also been on amoxicillin before without issues. Patient still with significant abdominal tenderness and now with this new reaction she will require monitoring to ensure improvement and no recurrence as well as a monitoring to ensure a new antibiotic regimen is tolerated. Patient and sister were agreeable with this and the hospitalist was contacted. Patient declines narcotic pain medicines. DIAGNOSIS: Diverticulitis, lower abdominal pain, allergic reaction DISPOSITION: Being evaluated by the hospitalist Patient was agreeable with this plan. CT ABDOMEN & PELVIS With Contrast: Findings most compatible with acute diverticulitis with new focal wall thickening in sigmoid colon and the left lower quadrant with surrounding fat stranding centered at 1 of the diverticula. No loculated fluid collection or extraluminal gas. No evidence of bowel obstruction. Normal appendix. No significant urinary bladder wall thickening. No bladder calculi. No hydronephrosis. Normal enhancement of the kidneys without CT findings to suggest acute pyelonephritis. Small hiatal hernia. Normal gallbladder. No abdominal aortic aneurysm or dissection. Moderate scattered atherosclerotic vascular calcifications. Alice Murguia MD Past Med/Surg History Medical History (Updated 09/05/21 @ 02:21 by Marc Brito M.D.) Asthma Dyslipidemia GERD (gastroesophageal reflux disease) Hypertension Kidney stones Mitral valve prolapse Stroke Family History Other Hypertension Social History Smoking Status: Never smoker Preferred Language: Eritrean marital status: Single Current Living Situation: Family current occupational status: employed Feels Safe at Home: Yes Allergies Allergies Allergy/AdvReac Type Severity Reaction Status Date / Time orphenadrine Allergy Severe ANAPHYLAXIS Verified 09/04/21 22:20 sodium metabisulfite Allergy Severe ANAPHYLAXIS Verified 09/04/21 22:20 ceftriaxone Allergy Intermediate Swelling Verified 09/05/21 02:45 of Lip/Tongue/Throat atorvastatin [From Lipitor] AdvReac Intermediate INSOMNIA,IT Verified 09/04/21 22:20 RAINA morphine AdvReac Intermediate CONFUSION, Verified 09/04/21 22:20 UNSTEADY GAIT, PANIC Home Meds Home Medications Medication Instructions Recorded Confirmed clopidogrel 75 mg tablet (Plavix) 75 mg PO QAM 10/31/18 09/04/21 fluticasone propionate 50 2 spray INTRANASAL QAM PRN 10/31/18 09/04/21 mcg/actuation nasal spray,suspension (Flonase Allergy Relief) montelukast 10 mg tablet 10 mg PO QAM 10/31/18 09/04/21 (Singulair) naproxen sodium 550 mg tablet 550 mg PO BID PRN 10/31/18 09/04/21 omeprazole 20 mg capsule,delayed 20 mg PO DAILYBB 10/31/18 09/04/21 release tiotropium bromide 1.25 2 puff INHALATION QAM 10/31/18 09/04/21 mcg/actuation mist for inhalation (Spiriva Respimat) famotidine 40 mg tablet 40 mg PO HS PRN 03/27/21 09/04/21 pravastatin 40 mg tablet 40 mg PO HS 03/27/21 09/04/21 Turmeric-Curcumin 500 mg PO DAILY 09/04/21 09/04/21 acetaminophen 500 mg tablet 1,000 mg PO DIRECTED PRN 09/04/21 09/04/21 (Tylenol Extra Strength) albuterol sulfate 2.5 mg INHALATION Q4H PRN 09/04/21 09/04/21 albuterol sulfate 90 mcg/actuation 2 puff INHALATION Q6H PRN 09/04/21 09/04/21 aerosol inhaler ascorbic acid (vitamin C) 1,000 mg 1 g PO DAILY 09/04/21 09/04/21 tablet (Vitamin C) aspirin 81 mg tablet,delayed 81 mg PO DAILY 09/04/21 09/04/21 release cholecalciferol (vitamin D3) 125 125 mcg PO DAILY 09/04/21 09/04/21 mcg (5,000 unit) tablet (Vitamin D3) coenzyme Q10 100 mg capsule 100 mg PO DAILY 09/04/21 09/04/21 (CoQ-10) fluticasone 500 mcg-salmeterol 50 1 inh INHALATION BID 09/04/21 09/04/21 mcg/dose blistr powdr for inhalation (Advair Diskus) ibuprofen 200 mg tablet 600 mg PO TID PRN 09/04/21 09/04/21 meclizine 12.5 mg tablet 12.5 mg PO TID PRN 09/04/21 09/04/21 ondansetron HCl 4 mg tablet 4 mg PO Q6H PRN 09/04/21 09/04/21 (Zofran) sucralfate 1 gram tablet (Carafate) 1 g PO ACHS 09/04/21 09/04/21 verapamil 120 mg tablet,extended 120 mg PO DAILY 09/04/21 09/04/21 release vitamin E 400 unit capsule 400 unit PO DAILY 09/04/21 09/04/21 zinc 100 mg tablet 100 mg PO DAILY 09/04/21 09/04/21 Results & Data (ED) Vital Signs Vital Signs - 24 hr 09/04/21 19:22 09/04/21 22:57 09/05/21 02:27 Temperature 36.7 C Temperature Source Temporal Artery Scan Pulse Rate 74 Pulse Rate [Finger] 62 71 Pulse Rhythm [Finger] Regular Pulse Strength [Finger] Normal Respiratory Rate 18 16 20 Respiratory Effort / Characteristics Non-Labored Non-Labored Spontaneous Non-Labored Spontaneous Respiratory Depth Normal Normal Normal Respiratory Pattern Regular Blood Pressure 149/91 H Blood Pressure [Right Arm] 116/65 156/85 H Blood Pressure Mean 110 Blood Pressure Mean [Right Arm] 82 108 Blood Pressure Position [Right Arm] Lying Pulse Oximetry 99 98 99 Oxygen Delivery Method Room Air Room Air Room Air Sepsis Recent Fever Within 48 Hours No Sepsis New/Unexplained Change in Mental Status No Sepsis Action Taken by Nursing No Action Required Laboratory Data Result diagrams: 09/04/21 23:08 09/04/21 23:08 Lab Results 09/04/21 09/04/21 09/04/21 Range/Units 19:30 23:08 23:08 WBC 7.93 (4.8-10.8) K/uL RBC 4.17 L (4.2-5.4) M/uL Hgb 11.9 L (12.0-16.0) g/dL Hct 37.5 (37-47) % MCV 89.9 (80-100) fL MCH 28.5 (25-34) pg MCHC 31.7 L (32-36) g/dL RDW Std Deviation 44.6 (36.4-46.3) fL RDW Coeff of Palmer 13.5 (11.5-14.5) % Plt Count 253 (130-400) K/uL MPV 10.4 (7.4-10.4) fL Immature Gran % (Auto) 0.1 % Neut % (Auto) 57.9 % Lymph % (Auto) 26.5 % Burnet % (Auto) 7.4 % Eos % (Auto) 7.8 % Baso % (Auto) 0.3 % Neut # (Auto) 4.59 (1.4-6.5) K/uL Lymph # (Auto) 2.10 (1.2-3.4) K/uL Burnet # (Auto) 0.59 (0.11-0.59) K/uL Eos # (Auto) 0.62 H (0-0.5) K/uL Baso # (Auto) 0.02 (0-0.2) K/uL Immature Gran # (Auto) 0.01 (0.00-0.02) K/uL Sodium 138 (136-145) mmol/L Potassium 4.0 (3.5-5.1) mmol/L Chloride 105 (98-107) mmol/L Carbon Dioxide 30 (21-32) mmol/L Anion Gap 3.0 (3-11) BUN 13 (7-18) mg/dl Creatinine 0.76 (0.6-1.2) mg/dl Est Cr Clr Drug Dosing 65.7 ml/min Est GFR ( Amer) 94.1 ml/min Est GFR (Non-Af Amer) 81.2 ml/min BUN/Creatinine Ratio 17.7 (10-20) Glucose 116 H (70-99) mg/dl Calcium 9.4 (8.5-10.1) mg/dl Total Bilirubin 0.4 (0.2-1) mg/dl AST 13 L (15-37) U/L ALT 21 (12-78) U/L Alkaline Phosphatase 104 (45-117) U/L Total Protein 7.8 (6.4-8.2) gm/dl Albumin 3.4 (3.4-5.0) gm/dl Globulin 4.4 H (2.5-4.0) gm/dl Albumin/Globulin Ratio 0.8 L (0.9-2) Lipase 120 (73-393) U/L HCG, Qual (Negative) Urine Color Yellow Urine Appearance Clear (Clear) Urine pH 5.0 (4.5-7.5) Ur Specific [place] 1.013 (1.000-1.030) Urine Protein Negative (Negative) Urine Glucose (UA) Negative (Negative) Urine Ketones Negative (Negative) Urine Blood Negative (Negative) Urine Nitrite Negative (Negative) Urine Bilirubin Negative (Negative) Urine Urobilinogen Negative (Negative) Ur Leukocyte Esterase 2+ H (Negative) Urine WBC (Auto) 5-10 H (0-5) /hpf Urine RBC (Auto) 0-4 (0-4) /hpf U Hyaline Cast (Auto) 0 (0-5) /lpf U Epithel Cells (Auto) 5-10 H (0-5) /lpf Urine Bacteria (Auto) Negative (Negative) COVID-19 Eval Order SARS-CoV-2 (PCR) (Negative) 09/04/21 09/04/21 09/04/21 Range/Units 23:08 23:08 23:08 WBC (4.8-10.8) K/uL RBC (4.2-5.4) M/uL Hgb (12.0-16.0) g/dL Hct (37-47) % MCV (80-100) fL MCH (25-34) pg MCHC (32-36) g/dL RDW Std Deviation (36.4-46.3) fL RDW Coeff of Palmer (11.5-14.5) % Plt Count (130-400) K/uL MPV (7.4-10.4) fL Immature Gran % (Auto) % Neut % (Auto) % Lymph % (Auto) % Burnet % (Auto) % Eos % (Auto) % Baso % (Auto) % Neut # (Auto) (1.4-6.5) K/uL Lymph # (Auto) (1.2-3.4) K/uL Burnet # (Auto) (0.11-0.59) K/uL Eos # (Auto) (0-0.5) K/uL Baso # (Auto) (0-0.2) K/uL Immature Gran # (Auto) (0.00-0.02) K/uL Sodium (136-145) mmol/L Potassium (3.5-5.1) mmol/L Chloride (98-107) mmol/L Carbon Dioxide (21-32) mmol/L Anion Gap (3-11) BUN (7-18) mg/dl Creatinine (0.6-1.2) mg/dl Est Cr Clr Drug Dosing ml/min Est GFR ( Amer) ml/min Est GFR (Non-Af Amer) ml/min BUN/Creatinine Ratio (10-20) Glucose (70-99) mg/dl Calcium (8.5-10.1) mg/dl Total Bilirubin (0.2-1) mg/dl AST (15-37) U/L ALT (12-78) U/L Alkaline Phosphatase (45-117) U/L Total Protein (6.4-8.2) gm/dl Albumin (3.4-5.0) gm/dl Globulin (2.5-4.0) gm/dl Albumin/Globulin Ratio (0.9-2) Lipase (73-393) U/L HCG, Qual Negative (Negative) Urine Color Urine Appearance (Clear) Urine pH (4.5-7.5) Ur Specific [place] (1.000-1.030) Urine Protein (Negative) Urine Glucose (UA) (Negative) Urine Ketones (Negative) Urine Blood (Negative) Urine Nitrite (Negative) Urine Bilirubin (Negative) Urine Urobilinogen (Negative) Ur Leukocyte Esterase (Negative) Urine WBC (Auto) (0-5) /hpf Urine RBC (Auto) (0-4) /hpf U Hyaline Cast (Auto) (0-5) /lpf U Epithel Cells (Auto) (0-5) /lpf Urine Bacteria (Auto) (Negative) COVID-19 Eval Order Covid19 at [facility] SARS-CoV-2 (PCR) NEGATIVE (Negative) Administered Medications Discontinued Medications Diphenhydramine HCl (Diphenhydramine 50 Mg/Ml Vial) 50 mg IV NOW STA Stop: 09/05/21 02:09 Last Admin: 09/05/21 02:16 Dose: 50 mg Documented by: [id number] Sodium Chloride (Nss 1000ml) 1,000 mls @ 999 mls/hr IV .Q1H1M ONE Stop: 09/04/21 23:10 Last Infusion: 09/05/21 02:36 Dose: 0 mls/hr Documented by: [id number] Admin: 09/04/21 23:13 Dose: 999 mls/hr Documented by: [id number] Ceftriaxone Sodium (Rocephin) 2,000 mg in 70 mls @ 140 mls/hr IV NOW STA Stop: 09/05/21 01:54 Last Admin: 09/05/21 01:39 Dose: 140 mls/hr Documented by: [id number] Ioversol (Optiray 320 100ml) 96 ml IV ONCE ONE Stop: 09/05/21 00:00 Last Admin: 09/04/21 23:59 Dose: 96 ml Documented by: [id number] Ketorolac Tromethamine (Ketorolac Tromethamine 15 Mg/Ml Vial) 15 mg IV NOW STA Stop: 09/05/21 01:26 Last Admin: 09/05/21 01:39 Dose: 15 mg Documented by: [id number] Discharge Plan Visit Data Chief Complaint: Abdominal Pain Stated Complaint: LOWER LEFT ABD PAIN ED Provider: Marc Brito Discharge Problem: Abdominal pain, LLQ, Diverticulitis large intestine, Allergic reaction Patient Disposition: Being Evaluated by Hospitalist Prescriptions Prescriptions: No Action clopidogrel [Plavix] 75 mg tablet 75 mg PO QAM RF: 0 naproxen sodium 550 mg Tablet 550 mg PO BID PRN (Reason: Pain) RF: 0 omeprazole 20 mg capsule,delayed release(DR/EC) 20 mg PO DAILYBB RF: 0 montelukast [Singulair] 10 mg tablet 10 mg PO QAM RF: 0 fluticasone propionate [Flonase Allergy Relief] 50 mcg/actuation spray,suspension 2 spray Intranasal QAM PRN (Reason: Congestion) RF: 0 Spiriva Respimat 1.25 mcg/actuation mist 2 puff Inhalation QAM RF: 0 pravastatin 40 mg tablet 40 mg PO HS RF: 0 famotidine 40 mg tablet 40 mg PO HS PRN (Reason: Acid Reflux) RF: 0 verapamil 120 mg tablet extended release 120 mg PO DAILY RF: 0 zinc 100 mg Tablet 100 mg PO DAILY RF: 0 ascorbic acid (vitamin C) [Vitamin C] 1,000 mg Tablet 1 g PO DAILY RF: 0 albuterol sulfate 2.5 mg /3 mL (0.083 %) Solution For Nebulization 2.5 mg INHALATION Q4H PRN (Reason: Shortness Of Breath) RF: 0 sucralfate [Carafate] 1 gram Tablet 1 g PO ACHS RF: 0 ondansetron HCl [Zofran] 4 mg Tablet 4 mg PO Q6H PRN (Reason: NAUSEA/VOMITING) RF: 0 meclizine 12.5 mg Tablet 12.5 mg PO TID PRN (Reason: Dizziness) RF: 0 aspirin 81 mg Tablet,Delayed Release (Dr/Ec) 81 mg PO DAILY RF: 0 acetaminophen [Tylenol Extra Strength] 500 mg Tablet 1,000 mg PO DIRECTED PRN (Reason: FEVER/PAIN) RF: 0 fluticasone propion-salmeterol [Advair Diskus] 500-50 mcg/dose Blister With Device 1 inh INHALATION BID RF: 0 ibuprofen 200 mg Tablet 600 mg PO TID PRN (Reason: Pain) RF: 0 albuterol sulfate 90 mcg/actuation HFA aerosol inhaler 2 puff INHALATION Q6H PRN (Reason: WHEEZING/SHORT OF BREATH) RF: 0 vitamin E 400 unit Capsule 400 unit PO DAILY RF: 0 coenzyme Q10 [CoQ-10] 100 mg Capsule 100 mg PO DAILY RF: 0 cholecalciferol (vitamin D3) [Vitamin D3] 125 mcg (5,000 unit) Tablet 125 mcg PO DAILY RF: 0 Turmeric-Curcumin 500 mg PO DAILY RF: 0 Referrals Referrals: Mariluz Carrillo PA-C [Primary Care Provider] - Discharge Problem: Diverticulitis large intestine Qualifiers: Diverticulitis bleeding: without bleeding Diverticulitis complication: without perforation or abscess Qualified Code(s): K57.32 - Diverticulitis of large intestine without perforation or abscess without bleeding Allergic reaction Qualifiers: Encounter type: initial encounter Qualified Code(s): T78.40XA - Allergy, unspecified, initial encounter
[2021-09-04 23:23] LABS: Basophils # (auto) 0.02 K/uL (0-0.2); Basophils % (auto) 0.3 %; Eosinophils # (auto) 0.62 K/uL (0-0.5); Eosinophils % (auto) 7.8 %; Hematocrit (blood only) 37.5 % (37-47); Hemoglobin 11.9 g/dL (12.0-16.0); Immature Granulocytes # (auto) 0.01 K/uL (0.00-0.02); Immature Granulocytes % (auto) 0.1 %; Lymphocytes % (auto) 26.5 %; Mean Corpuscular Hemoglobin 28.5 pg (25-34); Mean Corpuscular Hgb Conc 31.7 g/dL (32-36); Mean Corpuscular Volume 89.9 fL (80-100); Mean Platelet Volume 10.4 fL (7.4-10.4); Monocytes # (auto) 0.59 K/uL (0.11-0.59); Monocytes % (auto) 7.4 %; Neutrophils # (auto) 4.59 K/uL (1.4-6.5); Neutrophils % (auto) 57.9 %; Platelet Count 253 K/uL (130-400); RDW Coefficient of Variation 13.5 % (11.5-14.5); RDW Standard Deviation 44.6 fL (36.4-46.3); Red Blood Count 4.17 M/uL (4.2-5.4); White Blood Count 7.93 K/uL (4.8-10.8)
[2021-09-04 23:35] LABS: Pregnancy Test, Serum Negative (Negative)
[2021-09-04 23:39] LABS: Albumin Level 3.4 gm/dl (3.4-5.0); BUN Creatinine Ratio 17.7 (10-20); Calcium 9.4 mg/dl (8.5-10.1); Creatinine Clr Calc Pharmacy 65.7 ml/min; Est GFR (African American) 94.1 ml/min; Est GFR (Non-African American) 81.2 ml/min
[2021-09-04 23:42] LABS: Albumin Globulin Ratio 0.8 (0.9-2); Bilirubin,Total 0.4 mg/dl (0.2-1); Globulin 4.4 gm/dl (2.5-4.0); Total Protein 7.8 gm/dl (6.4-8.2)
[2021-09-04] MEDS ORDERED: OPTIRAY 320 100ml IV ONE (23:59)
[2021-09-05] MEDS ORDERED: cefTRIAXone SODIUM 2,000 MG/70 ML BAG IV STA (01:25)
[2021-09-05] MEDS ORDERED: KETOROLAC TROMETHAMINE 15 MG/ML VIAL IV STA (01:25)
[2021-09-05] MEDS ORDERED: diphenhydrAMINE 50 MG/ML VIAL IV STA (02:08)
[2021-09-05] MEDS ORDERED: methylPREDNISolone 125 MG/2 ML VIAL IV STA (02:08)
[2021-09-05] MEDS ORDERED: ALBUTEROL 0.083% NEBU SOLN 3 ML VIAL INH PRN (04:30)
[2021-09-05] MEDS ORDERED: MECLIZINE 12.5 MG TAB PO PRN (04:30)
[2021-09-05] MEDS ORDERED: D5W AND NSS 1,000 ML IV SCH (04:30)
[2021-09-05] MEDS ORDERED: FLUTICASONE PROPIONATE NA SPR 16 GM BTL PRN (04:30)
[2021-09-05] MEDS ORDERED: ONDANSETRON INJ 2 MG/ML 2 ML VIAL IV PRN (04:30)
--- NOTE | 2021-09-05 05:41 | History and Physical Report ---
DATE OF ADMISSION: 09/05/2021. CHIEF COMPLAINT: Abdominal pain. HISTORY OF PRESENT ILLNESS: A 66-year-old female with past medical history significant for hyperlipidemia, asthma, chronic allergic rhinitis, history of CVA, hypertension, tricuspid valve regurgitation, GERD, osteoporosis, migraine, who presents with abdominal pain. The patient says the abdominal pain started last Tuesday, but night it got worse, she could not sleep, and as it was not getting better, she came here and found to have acute diverticulitis. Denies any nausea or vomiting. Did not move her bowels yesterday. No blood in the stools. Normal bladder movements. No fevers, no chest pain, no shortness of breath, no cough, no headache, no blurred visions, no runny nose, no sore throat. Currently, resting comfortably and hemodynamically stable. She was given Rocephin in the ER, following which she developed allergic reaction with itching. She was given steroid and Benadryl. Currently, the allergic reaction is improved. ALLERGIES: ORPHENADRINE, SODIUM METABISULFITE, CEFTRIAXONE, ATORVASTATIN, MORPHINE. PAST MEDICAL HISTORY: As mentioned above. PAST SURGICAL HISTORY: Carpal tunnel surgery, colonoscopy, lithotripsy, EGDs. MEDICATIONS: The patient is on Tylenol Extra Strength 1000 mg p.o. b.i.d. p.r.n., albuterol 2.5 mg inhalation q. 4 hours p.r.n., vitamin C 1gm mg p.o. daily, aspirin 81 mg p.o. daily, vitamin D 125 mcg p.o. daily, Plavix 75 mg p.o. daily, Coenzyme Q10 100 mg p.o. daily, famotidine 40 mg p.o. at bedtime p.r.n., Advair Diskus one inhalation b.i.d., Flonase 2 sprays intranasal daily p.r.n., ibuprofen 600 mg p.o. t.i.d. p.r.n., meclizine 12.5 mg p.o. t.i.d. p.r.n., Singulair 10 mg p.o. a.m., omeprazole 20 mg p.o. a.m., Zofran 4 mg p.o. q. 6 hours p.r.n., pravastatin 40 mg p.o. at bedtime, sucralfate 1 gram p.o. a.c. and at bedtime, Spiriva Respimat 2 puffs inhalation in the a.m., verapamil 120 mg p.o. daily, zinc 100 mg p.o. daily. FAMILY HISTORY: Significant for mother had breast cancer, neurological disorder; father had stroke and diabetes; brother had cancer. SOCIAL HISTORY: , no smoking, no alcohol, no drug use. REVIEW OF SYSTEMS: As per HPI. Rest of the review of systems is negative. PHYSICAL EXAMINATION: GENERAL: The patient is of moderate build, not in acute distress. VITAL SIGNS: Temperature 36.7, pulse 71, respiratory rate 20, blood pressure 156/85, and oxygen 99% on room air. HEENT: Pupils equal, round and reactive to light. Oral mucosa moist. NECK: No JVD, no neck masses. CARDIOVASCULAR: S1 and S2 heard. Regular rate and rhythm. No murmur, no gallop. RESPIRATORY SYSTEM: Normal AP diameter. No accessory muscle use. No wheezing, no crackles. ABDOMEN: Soft. Bowel sounds sluggish. Tenderness in left lower quadrant and guarding present. No distention. CENTRAL NERVOUS SYSTEM: Cranial nerves II-XII grossly intact, nonfocal. EXTREMITIES: No edema, no erythema. LABORATORY DATA: WBC 7.9, hemoglobin 11.9, hematocrit 37.5, platelets 253. Sodium 138, potassium 4, chloride 105, bicarbonate 30, BUN 13, creatinine 0.7, serum glucose 116, calcium 9.4, total bilirubin 0.4, AST 13, ALT 21, alkaline phosphatase 104. Lipase 120. HCG qualitative negative. Urinalysis, +2 leukocyte esterase. SARS-CoV-2 PCR negative. IMAGING DATA: CT of abdomen and pelvis shows preliminary report, acute diverticulitis in the sigmoid colon, possible acute pyelonephritis. ASSESSMENT AND PLAN: This is a 66-year-old female who presented with abdominal pain and found to have acute diverticulitis. 1. Acute diverticulitis: The patient says she had a colonoscopy three years ago. Will empirically start on Cipro and Flagyl , IV fluids. Consult surgery in the a.m. Needs to follow up with GI for colonoscopy in two months. 2. Possible urinary tract infection: Follow the cultures. Antibiotics as above. 3. Gastroesophageal reflux disease: Continue home medication. 4. Hyperlipidemia: Continue statin. 5. Asthma: Continue her home inhalers of Singulair. 6. History of hypertension: Continue verapamil. 7. History of cerebrovascular accident: On Plavix and statin. 8. Deep venous thrombosis prophylaxis: Lovenox. DISPOSITION: Closely monitor in the medical floor. PT, OT prior to discharge. Social service to help with discharge planning. Level 1 full code. Job ID: [id number] MTDD
[2021-09-05] MEDS: SODIUM CHLORIDE 0.9% 1000ML 1,000 ML IV SCH ×3 (06:04→22:18)
[2021-09-05] MEDS: metroNIDAZOLE 500 MG/100 ML BAG IV SCH ×3 (06:04→22:18)
[2021-09-05] MEDS: ENOXAPARIN INJ 40 MG/0.4 ML SYR SQ SCH (06:08)
[2021-09-05] MEDS: PANTOprazole 40 MG TAB PO SCH (06:09)
--- NOTE | 2021-09-05 07:10 | CT Scan Report ---
ABDOMEN AND PELVIS CT WITH IV CONTRAST CT DOSE: 399.61 mGy.cm HISTORY: LLQ pain, urinary frequency TECHNIQUE: Multiaxial CT images of the abdomen and pelvis were performed following the use of intrave nous contrast. A dose lowering technique was utilized adhering to the principles of ALARA. COMPARISON STUDY: Abdomen and pelvis CT 02/28/2015. FINDINGS: The lung bases are clear. There is a small hiatus hernia, unchanged. No pneumoperitoneum. N o pneumatosis. No suspicious lytic are blastic osseous lesions. The spleen, adrenal glands, pancreas, gallbladder, and kidneys are unremarkable. No hydronephrosis. The bladder, uterus, bilateral adnexa are within normal limits. No retroperitoneal lymphadenopathy. Mild calcified plaque within the normal caliber abdominal aorta. Stable 1 cm hypodense lesion within the right hepatic lobe. This is likely benign given the long-term stability. No evidence for bowel obstruction. Normal appendix. Focal thick ening within the proximal sigmoid colon within inflamed diverticulum and adjacent pericolonic fat str anding. This is consistent with an acute diverticulitis. No perforation or abscess identified. IMPRESSION: 1. Acute diverticulitis involving the proximal sigmoid colon. No perforation or abscess. Follow up co lonoscopy suggested once the diverticulitis has resolved to exclude the less likely possibility of an underlying colonic lesion. 2. No evidence for bowel obstruction. 3. Normal appendix. 4. No hydronephrosis. 5. Small hiatus hernia. ACT 112: Negative or not required by law. Electronically signed by: Kristofer Mary M.D. 09/05/2021 7:08 AM
[2021-09-05 07:27] LABS: Basophils # (auto) 0.01 K/uL (0-0.2); Basophils % (auto) 0.2 %; Eosinophils # (auto) 0.56 K/uL (0-0.5); Eosinophils % (auto) 10.1 %; Hematocrit (blood only) 35.8 % (37-47); Hemoglobin 11.4 g/dL (12.0-16.0); Immature Granulocytes # (auto) 0.01 K/uL (0.00-0.02); Immature Granulocytes % (auto) 0.2 %; Lymphocytes # (auto) 1.78 K/uL (1.2-3.4); Lymphocytes % (auto) 32.2 %; Mean Corpuscular Hemoglobin 28.6 pg (25-34); Mean Corpuscular Hgb Conc 31.8 g/dL (32-36); Mean Corpuscular Volume 89.7 fL (80-100); Mean Platelet Volume 10.5 fL (7.4-10.4); Monocytes # (auto) 0.43 K/uL (0.11-0.59); Monocytes % (auto) 7.8 %; Neutrophils # (auto) 2.73 K/uL (1.4-6.5); Neutrophils % (auto) 49.5 %; Platelet Count 247 K/uL (130-400); RDW Coefficient of Variation 13.5 % (11.5-14.5); RDW Standard Deviation 44.8 fL (36.4-46.3); Red Blood Count 3.99 M/uL (4.2-5.4); White Blood Count 5.52 K/uL (4.8-10.8)
[2021-09-05 07:52] LABS: BUN Creatinine Ratio 15.2 (10-20); Calcium 8.7 mg/dl (8.5-10.1); Creatinine Clr Calc Pharmacy 76.7 ml/min; Est GFR (African American) 104.9 ml/min; Est GFR (Non-African American) 90.5 ml/min; Magnesium 2.4 mg/dl (1.8-2.4); Potassium 3.6 mmol/L (3.5-5.1)
[2021-09-05] MEDS: SUCRALFATE 1 GM TAB PO SCH ×4 (08:07→20:48)
[2021-09-05] MEDS: CIPROFLOXACIN / D5W 400 MG/200 ML BAG IV SCH ×2 (08:07→18:33)
[2021-09-05] MEDS ORDERED: NON-FORMULARY MEDICATION (Coenzyme Q10 [Coq-10] 100 mg Capsule) PO SCH (09:00)
[2021-09-05] MEDS: FAMOTIDINE 20 MG in SYRINGE 3 ML IV SCH ×2 (09:12→20:48)
[2021-09-05] MEDS: UMECLIDINIUM BROMIDE 62.5MCG/BLISTER 7 PUFFS/INHALER INH SCH ×2 (09:13→18:34)
[2021-09-05] MEDS: FLUTICASONE/VILANTEROL 200/25MCG 14 PUFFS/INHALER INH SCH ×2 (09:13→18:34)
--- NOTE | 2021-09-05 09:49 | Surgery Consultation ---
Date of Consultation September 05, 2021 Assessment & Plan (1) Diverticulitis large intestine: 66-year-old woman with uncomplicated diverticulitis. There is no evidence of perforation on the CT scan. Her white blood cell count is normal. Agree with continued IV antibiotics. She may be switched over to oral antibiotics in the next 24 hours. No requirement for surgical intervention at this time. We will follow along. History of Present Illness Reason for Consultation: Diverticulitis Requesting Physician: Angeles Sims MD Attending Physician: Angeles Sims MD History of Present Illness 66-year-old woman presents with left-sided abdominal pain starting a few days ago. It has continued since that time at the same intensity. It radiates around to her back. She denies nausea or vomiting. She denies changes in bowel habits. She denies fevers or chills. She denies chest pain or shortness of breath. The pain is sharp in character, unrelenting. Allergies Allergy/AdvReac Type Severity Reaction Status Date / Time orphenadrine Allergy Severe ANAPHYLAXIS Verified 09/04/21 22:20 sodium metabisulfite Allergy Severe ANAPHYLAXIS Verified 09/04/21 22:20 ceftriaxone Allergy Intermediate Swelling Verified 09/05/21 02:45 of Lip/Tongue/Throat atorvastatin [From Lipitor] AdvReac Intermediate INSOMNIA,IT Verified 09/04/21 22:20 RAINA morphine AdvReac Intermediate CONFUSION, Verified 09/04/21 22:20 UNSTEADY GAIT, PANIC Home Medications Medication Instructions Recorded Confirmed Type clopidogrel 75 mg tablet (Plavix) 75 mg PO QAM 10/31/18 09/04/21 History fluticasone propionate 50 2 spray INTRANASAL QAM PRN 10/31/18 09/04/21 History mcg/actuation nasal spray,suspension (Flonase Allergy Relief) montelukast 10 mg tablet 10 mg PO QAM 10/31/18 09/04/21 History (Singulair) naproxen sodium 550 mg tablet 550 mg PO BID PRN 10/31/18 09/04/21 History omeprazole 20 mg capsule,delayed 20 mg PO DAILYBB 10/31/18 09/04/21 History release tiotropium bromide 1.25 2 puff INHALATION QAM 10/31/18 09/04/21 History mcg/actuation mist for inhalation (Spiriva Respimat) famotidine 40 mg tablet 40 mg PO HS PRN 03/27/21 09/04/21 History pravastatin 40 mg tablet 40 mg PO HS 03/27/21 09/04/21 History Turmeric-Curcumin 500 mg PO DAILY 09/04/21 09/04/21 History acetaminophen 500 mg tablet 1,000 mg PO DIRECTED PRN 09/04/21 09/04/21 History (Tylenol Extra Strength) albuterol sulfate 2.5 mg INHALATION Q4H PRN 09/04/21 09/04/21 History albuterol sulfate 90 mcg/actuation 2 puff INHALATION Q6H PRN 09/04/21 09/04/21 History aerosol inhaler ascorbic acid (vitamin C) 1,000 mg 1 g PO DAILY 09/04/21 09/04/21 History tablet (Vitamin C) aspirin 81 mg tablet,delayed 81 mg PO DAILY 09/04/21 09/04/21 History release cholecalciferol (vitamin D3) 125 125 mcg PO DAILY 09/04/21 09/04/21 History mcg (5,000 unit) tablet (Vitamin D3) coenzyme Q10 100 mg capsule 100 mg PO DAILY 09/04/21 09/04/21 History (CoQ-10) fluticasone 500 mcg-salmeterol 50 1 inh INHALATION BID 09/04/21 09/04/21 History mcg/dose blistr powdr for inhalation (Advair Diskus) ibuprofen 200 mg tablet 600 mg PO TID PRN 09/04/21 09/04/21 History meclizine 12.5 mg tablet 12.5 mg PO TID PRN 09/04/21 09/04/21 History ondansetron HCl 4 mg tablet 4 mg PO Q6H PRN 09/04/21 09/04/21 History (Zofran) sucralfate 1 gram tablet (Carafate) 1 g PO ACHS 09/04/21 09/04/21 History verapamil 120 mg tablet,extended 120 mg PO DAILY 09/04/21 09/04/21 History release vitamin E 400 unit capsule 400 unit PO DAILY 09/04/21 09/04/21 History zinc 100 mg tablet 100 mg PO DAILY 09/04/21 09/04/21 History Patient History Medical History Asthma Dyslipidemia GERD (gastroesophageal reflux disease) Hypertension Kidney stones Mitral valve prolapse Stroke Family History Other Hypertension Social History Smoking Status: Never smoker Hx Alcohol Use: No Hx Substance Use: No Preferred Language: Arabic 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 Beliefs That Will Affect Care: None marital status: Single Current Living Situation: Family Current Living Situation Comment: takes care of mother current occupational status: employed Feels Safe at Home: Yes Safety Concerns: Feels Safe At This Time Assistive Devices: None Review of Systems Review of Systems: All systems reviewed & are unremarkable except as noted in HPI & below Physical Exam Constitutional: WD/WN, vitals as above Eyes: PERRL, conjunctivae normal, anicteric sclerae Neck: trachea midline, no thyromegaly Respiratory: normal respiratory effort; no respiratory distress and no labored breathing Cardiovascular: Rate/Rhythm: regular rate and regular rhythm Gastrointestinal (Abdomen): Inspection/Auscultation: abdomen normal to inspection; abdomen not distended Percussion/Palpation: + abdomen tender (Moderate TTP in LLQ and LUQ) and abdomen soft; no guarding and abdomen not rigid Musculoskeletal: Extremities: no cyanosis and no clubbing Skin: no rashes, warm and dry Psychiatric: A+Ox3, euthymic affect Results & Data ([facility]) Vital Signs (Past 12 Hours) Vital Signs Temp Pulse Resp BP BP Pulse Ox 09/05/21 07:03 36.6 C 61 16 108/67 96 09/05/21 04:38 36.9 C 64 18 121/73 96 09/05/21 02:27 71 20 156/85 H 99 09/04/21 22:57 62 16 116/65 98 Laboratory Results 09/05/21 09/05/21 09/05/21 Range/Units 07:03 07:03 07:03 WBC 5.52 (4.8-10.8) K/uL RBC 3.99 L (4.2-5.4) M/uL Hgb 11.4 L (12.0-16.0) g/dL Hct 35.8 L (37-47) % MCV 89.7 (80-100) fL MCH 28.6 (25-34) pg MCHC 31.8 L (32-36) g/dL RDW Std Deviation 44.8 (36.4-46.3) fL RDW Coeff of Palmer 13.5 (11.5-14.5) % Plt Count 247 (130-400) K/uL MPV 10.5 H (7.4-10.4) fL Immature Gran % (Auto) 0.2 % Neut % (Auto) 49.5 % Lymph % (Auto) 32.2 % Walsh % (Auto) 7.8 % Eos % (Auto) 10.1 % Baso % (Auto) 0.2 % Neut # (Auto) 2.73 (1.4-6.5) K/uL Lymph # (Auto) 1.78 (1.2-3.4) K/uL Walsh # (Auto) 0.43 (0.11-0.59) K/uL Eos # (Auto) 0.56 H (0-0.5) K/uL Baso # (Auto) 0.01 (0-0.2) K/uL Immature Gran # (Auto) 0.01 (0.00-0.02) K/uL Sodium 139 (136-145) mmol/L Potassium 3.6 (3.5-5.1) mmol/L Chloride 109 H (98-107) mmol/L Carbon Dioxide 25 (21-32) mmol/L Anion Gap 5.0 (3-11) BUN 10 (7-18) mg/dl Creatinine 0.68 (0.6-1.2) mg/dl Est Cr Clr Drug Dosing 76.7 ml/min Est GFR ( Amer) 104.9 ml/min Est GFR (Non-Af Amer) 90.5 ml/min BUN/Creatinine Ratio 15.2 (10-20) Glucose 93 (70-99) mg/dl Calcium 8.7 (8.5-10.1) mg/dl Magnesium 2.4 (1.8-2.4) mg/dl Total Bilirubin (0.2-1) mg/dl AST (15-37) U/L ALT (12-78) U/L Alkaline Phosphatase (45-117) U/L Total Protein (6.4-8.2) gm/dl Albumin (3.4-5.0) gm/dl Globulin (2.5-4.0) gm/dl Albumin/Globulin Ratio (0.9-2) Lipase (73-393) U/L HCG, Qual (Negative) Urine Color Urine Appearance (Clear) Urine pH (4.5-7.5) Ur Specific Mcclure (1.000-1.030) Urine Protein (Negative) Urine Glucose (UA) (Negative) Urine Ketones (Negative) Urine Blood (Negative) Urine Nitrite (Negative) Urine Bilirubin (Negative) Urine Urobilinogen (Negative) Ur Leukocyte Esterase (Negative) Urine WBC (Auto) (0-5) /hpf Urine RBC (Auto) (0-4) /hpf U Hyaline Cast (Auto) (0-5) /lpf U Epithel Cells (Auto) (0-5) /lpf Urine Bacteria (Auto) (Negative) COVID-19 Eval Order SARS-CoV-2 (PCR) (Negative) Hepatitis C Ab Screen Pending 09/04/21 09/04/21 09/04/21 Range/Units 23:08 23:08 23:08 WBC (4.8-10.8) K/uL RBC (4.2-5.4) M/uL Hgb (12.0-16.0) g/dL Hct (37-47) % MCV (80-100) fL MCH (25-34) pg MCHC (32-36) g/dL RDW Std Deviation (36.4-46.3) fL RDW Coeff of Palmer (11.5-14.5) % Plt Count (130-400) K/uL MPV (7.4-10.4) fL Immature Gran % (Auto) % Neut % (Auto) % Lymph % (Auto) % Walsh % (Auto) % Eos % (Auto) % Baso % (Auto) % Neut # (Auto) (1.4-6.5) K/uL Lymph # (Auto) (1.2-3.4) K/uL Walsh # (Auto) (0.11-0.59) K/uL Eos # (Auto) (0-0.5) K/uL Baso # (Auto) (0-0.2) K/uL Immature Gran # (Auto) (0.00-0.02) K/uL Sodium (136-145) mmol/L Potassium (3.5-5.1) mmol/L Chloride (98-107) mmol/L Carbon Dioxide (21-32) mmol/L Anion Gap (3-11) BUN (7-18) mg/dl Creatinine (0.6-1.2) mg/dl Est Cr Clr Drug Dosing ml/min Est GFR ( Amer) ml/min Est GFR (Non-Af Amer) ml/min BUN/Creatinine Ratio (10-20) Glucose (70-99) mg/dl Calcium (8.5-10.1) mg/dl Magnesium (1.8-2.4) mg/dl Total Bilirubin (0.2-1) mg/dl AST (15-37) U/L ALT (12-78) U/L Alkaline Phosphatase (45-117) U/L Total Protein (6.4-8.2) gm/dl Albumin (3.4-5.0) gm/dl Globulin (2.5-4.0) gm/dl Albumin/Globulin Ratio (0.9-2) Lipase (73-393) U/L HCG, Qual Negative (Negative) Urine Color Urine Appearance (Clear) Urine pH (4.5-7.5) Ur Specific Mcclure (1.000-1.030) Urine Protein (Negative) Urine Glucose (UA) (Negative) Urine Ketones (Negative) Urine Blood (Negative) Urine Nitrite (Negative) Urine Bilirubin (Negative) Urine Urobilinogen (Negative) Ur Leukocyte Esterase (Negative) Urine WBC (Auto) (0-5) /hpf Urine RBC (Auto) (0-4) /hpf U Hyaline Cast (Auto) (0-5) /lpf U Epithel Cells (Auto) (0-5) /lpf Urine Bacteria (Auto) (Negative) COVID-19 Eval Order Covid19 at [facility] SARS-CoV-2 (PCR) NEGATIVE (Negative) Hepatitis C Ab Screen 09/04/21 09/04/21 09/04/21 Range/Units 23:08 23:08 19:30 WBC 7.93 (4.8-10.8) K/uL RBC 4.17 L (4.2-5.4) M/uL Hgb 11.9 L (12.0-16.0) g/dL Hct 37.5 (37-47) % MCV 89.9 (80-100) fL MCH 28.5 (25-34) pg MCHC 31.7 L (32-36) g/dL RDW Std Deviation 44.6 (36.4-46.3) fL RDW Coeff of Palmer 13.5 (11.5-14.5) % Plt Count 253 (130-400) K/uL MPV 10.4 (7.4-10.4) fL Immature Gran % (Auto) 0.1 % Neut % (Auto) 57.9 % Lymph % (Auto) 26.5 % Walsh % (Auto) 7.4 % Eos % (Auto) 7.8 % Baso % (Auto) 0.3 % Neut # (Auto) 4.59 (1.4-6.5) K/uL Lymph # (Auto) 2.10 (1.2-3.4) K/uL Walsh # (Auto) 0.59 (0.11-0.59) K/uL Eos # (Auto) 0.62 H (0-0.5) K/uL Baso # (Auto) 0.02 (0-0.2) K/uL Immature Gran # (Auto) 0.01 (0.00-0.02) K/uL Sodium 138 (136-145) mmol/L Potassium 4.0 (3.5-5.1) mmol/L Chloride 105 (98-107) mmol/L Carbon Dioxide 30 (21-32) mmol/L Anion Gap 3.0 (3-11) BUN 13 (7-18) mg/dl Creatinine 0.76 (0.6-1.2) mg/dl Est Cr Clr Drug Dosing 65.7 ml/min Est GFR ( Amer) 94.1 ml/min Est GFR (Non-Af Amer) 81.2 ml/min BUN/Creatinine Ratio 17.7 (10-20) Glucose 116 H (70-99) mg/dl Calcium 9.4 (8.5-10.1) mg/dl Magnesium (1.8-2.4) mg/dl Total Bilirubin 0.4 (0.2-1) mg/dl AST 13 L (15-37) U/L ALT 21 (12-78) U/L Alkaline Phosphatase 104 (45-117) U/L Total Protein 7.8 (6.4-8.2) gm/dl Albumin 3.4 (3.4-5.0) gm/dl Globulin 4.4 H (2.5-4.0) gm/dl Albumin/Globulin Ratio 0.8 L (0.9-2) Lipase 120 (73-393) U/L HCG, Qual (Negative) Urine Color Yellow Urine Appearance Clear (Clear) Urine pH 5.0 (4.5-7.5) Ur Specific Mcclure 1.013 (1.000-1.030) Urine Protein Negative (Negative) Urine Glucose (UA) Negative (Negative) Urine Ketones Negative (Negative) Urine Blood Negative (Negative) Urine Nitrite Negative (Negative) Urine Bilirubin Negative (Negative) Urine Urobilinogen Negative (Negative) Ur Leukocyte Esterase 2+ H (Negative) Urine WBC (Auto) 5-10 H (0-5) /hpf Urine RBC (Auto) 0-4 (0-4) /hpf U Hyaline Cast (Auto) 0 (0-5) /lpf U Epithel Cells (Auto) 5-10 H (0-5) /lpf Urine Bacteria (Auto) Negative (Negative) COVID-19 Eval Order SARS-CoV-2 (PCR) (Negative) Hepatitis C Ab Screen Diagnostic Findings ABDOMEN AND PELVIS CT WITH IV CONTRAST CT DOSE: 399.61 mGy.cm HISTORY: LLQ pain, urinary frequency TECHNIQUE: Multiaxial CT images of the abdomen and pelvis were performed following the use of intravenous contrast. A dose lowering technique was utilized adhering to the principles of ALARA. COMPARISON STUDY: Abdomen and pelvis CT 02/28/2015. FINDINGS: The lung bases are clear. There is a small hiatus hernia, unchanged. No pneumoperitoneum. No pneumatosis. No suspicious lytic are blastic osseous lesions. The spleen, adrenal glands, pancreas, gallbladder, and kidneys are unremarkable. No hydronephrosis. The bladder, uterus, bilateral adnexa are within normal limits. No retroperitoneal lymphadenopathy. Mild calcified plaque within the normal caliber abdominal aorta. Stable 1 cm hypodense lesion within the right hepatic lobe. This is likely benign given the long-term stability. No evidence for bowel obstruction. Normal appendix. Focal thickening within the proximal sigmoid colon within inflamed diverticulum and adjacent pericolonic fat stranding. This is consistent with an acute diverticulitis. No perforation or abscess identified. IMPRESSION: 1. Acute diverticulitis involving the proximal sigmoid colon. No perforation or abscess. Follow up colonoscopy suggested once the diverticulitis has resolved to exclude the less likely possibility of an underlying colonic lesion. 2. No evidence for bowel obstruction. 3. Normal appendix. 4. No hydronephrosis. 5. Small hiatus hernia. (1) Diverticulitis large intestine Diverticulitis bleeding: without bleeding Diverticulitis complication: without perforation or abscess Qualified Code(s): K57.32 - Diverticulitis of large intestine without perforation or abscess without bleeding
[2021-09-05] MEDS: ASCORBIC ACID 500 MG TAB PO SCH (10:23)
[2021-09-05] MEDS: ASPIRIN 81 MG ECTAB PO SCH (10:23)
[2021-09-05] MEDS: VERAPAMIL HCL 120 MG TABCR PO SCH (10:24)
[2021-09-05] MEDS: CLOPIDOGREL BISULFATE 75 MG TAB PO SCH (10:24)
[2021-09-05] MEDS: CHOLECALCIFEROL 1,000 UNITS 25 MCG TAB PO SCH (10:24)
[2021-09-05] MEDS: MONTELUKAST SODIUM 10 MG TABLET PO SCH (10:24)
[2021-09-05] MEDS: PRAVASTATIN SOD 40 MG TAB PO SCH (20:48)
[2021-09-05] MEDS ORDERED: SIMETHICONE 80 MG CHEW PO PRN (22:21)
[2021-09-06] MEDS: ACETAMINOPHEN 325 MG TAB PO PRN (03:42)
[2021-09-06] MEDS: metroNIDAZOLE 500 MG/100 ML BAG IV SCH ×3 (05:47→21:55)
[2021-09-06] MEDS: ENOXAPARIN INJ 40 MG/0.4 ML SYR SQ SCH (05:47)
[2021-09-06] MEDS: PANTOprazole 40 MG TAB PO SCH (05:47)
[2021-09-06] MEDS: SODIUM CHLORIDE 0.9% 1000ML 1,000 ML IV SCH ×2 (05:51→13:21)
[2021-09-06] MEDS: CIPROFLOXACIN / D5W 400 MG/200 ML BAG IV SCH ×2 (06:00→18:22)
[2021-09-06] MEDS: FLUTICASONE/VILANTEROL 200/25MCG 14 PUFFS/INHALER INH SCH (06:08)
[2021-09-06 08:37] LABS: Basophils # (auto) 0.02 K/uL (0-0.2); Basophils % (auto) 0.5 %; Eosinophils # (auto) 0.53 K/uL (0-0.5); Hematocrit (blood only) 34.8 % (37-47); Hemoglobin 10.9 g/dL (12.0-16.0); Immature Granulocytes # (auto) 0.01 K/uL (0.00-0.02); Immature Granulocytes % (auto) 0.2 %; Lymphocytes # (auto) 1.32 K/uL (1.2-3.4); Lymphocytes % (auto) 29.9 %; Mean Corpuscular Hemoglobin 28.3 pg (25-34); Mean Corpuscular Hgb Conc 31.3 g/dL (32-36); Mean Corpuscular Volume 90.4 fL (80-100); Mean Platelet Volume 10.2 fL (7.4-10.4); Monocytes # (auto) 0.59 K/uL (0.11-0.59); Monocytes % (auto) 13.3 %; Neutrophils # (auto) 1.95 K/uL (1.4-6.5); Neutrophils % (auto) 44.1 %; Platelet Count 242 K/uL (130-400); RDW Coefficient of Variation 13.4 % (11.5-14.5); RDW Standard Deviation 44.2 fL (36.4-46.3); Red Blood Count 3.85 M/uL (4.2-5.4); White Blood Count 4.42 K/uL (4.8-10.8)
[2021-09-06] MEDS: SUCRALFATE 1 GM TAB PO SCH ×4 (08:38→21:56)
[2021-09-06] MEDS: CLOPIDOGREL BISULFATE 75 MG TAB PO SCH (08:42)
[2021-09-06] MEDS: CHOLECALCIFEROL 1,000 UNITS 25 MCG TAB PO SCH ×2 (08:42→09:09)
[2021-09-06] MEDS: ASCORBIC ACID 500 MG TAB PO SCH (08:42)
[2021-09-06] MEDS: MONTELUKAST SODIUM 10 MG TABLET PO SCH (08:42)
[2021-09-06] MEDS: ASPIRIN 81 MG ECTAB PO SCH ×2 (08:42→09:09)
[2021-09-06] MEDS: UMECLIDINIUM BROMIDE 62.5MCG/BLISTER 7 PUFFS/INHALER INH SCH (08:43)
[2021-09-06] MEDS: VERAPAMIL HCL 120 MG TABCR PO SCH (08:43)
[2021-09-06] MEDS: FAMOTIDINE 20 MG in SYRINGE 3 ML IV SCH ×2 (08:45→21:56)
[2021-09-06 08:55] LABS: BUN Creatinine Ratio 7.9 (10-20); Calcium 8.7 mg/dl (8.5-10.1); Creatinine Clr Calc Pharmacy 72.5 ml/min; Est GFR (African American) 100.4 ml/min; Est GFR (Non-African American) 86.7 ml/min; Potassium 3.7 mmol/L (3.5-5.1)
--- NOTE | 2021-09-06 11:30 | Surgery Progress Note ---
Date of Service September 06, 2021 Assessment & Plan (1) Diverticulitis large intestine: Plan: 66-year-old woman with uncomplicated diverticulitis. There is no evidence of perforation on the CT scan. Her white blood cell count is normal. Agree with continued IV antibiotics. She may be switched over to oral antibiotics in the next 24 hours. No requirement for surgical intervention at this time. We will follow along. Hospital day #2: She continues to have fairly significant pain, however it is improving. Continue IV antibiotics for today. Advance diet as tolerated. Possible discharge home tomorrow. Admission and Anticipated Discharge Date Admission Date: September 05, 2021 Subjective She seems to be feeling better today, but still has fairly significant pain in her left lower quadrant. She denies nausea vomiting. She is tolerating clear liquids. Physical Exam Constitutional: WD/WN, vitals as above Eyes: PERRL, conjunctivae normal, anicteric sclerae Gastrointestinal (Abdomen): Inspection/Auscultation: abdomen normal to inspection; abdomen not distended Percussion/Palpation: + abdomen tender (Moderate TTP in LLQ and LUQ) and abdomen soft; no guarding and abdomen not rigid Skin: no rashes, warm and dry Psychiatric: A+Ox3, euthymic affect Results & Data ([facility]) Vital Signs (Past 12 Hours) Vital Signs Temp Pulse Resp BP Pulse Ox 09/06/21 07:34 36.6 C 60 16 145/78 H 97 (1) Diverticulitis large intestine Diverticulitis bleeding: without bleeding Diverticulitis complication: without perforation or abscess Qualified Code(s): K57.32 - Diverticulitis of large intestine without perforation or abscess without bleeding
--- NOTE | 2021-09-06 14:17 | Hospitalist Progress Note ---
Date of Service September 06, 2021 Assessment & Plan (1) Diverticulitis large intestine: Plan: CT scan did show acute diverticulitis involving the proximal sigmoid colon Has had colonoscopy years before Appreciate surgery input and recommendation-continue with conservative management Has been tolerating clears and advance as tolerated from tomorrow Still has pain, no nausea and or vomiting and bowel has not moved We will continue current IV antibiotic and advance diet as tolerated If tolerating diet and no more infective symptoms she will be discharged home tomorrow (2) Abdominal pain, LLQ: Plan: Secondary to acute sigmoid diverticulitis (3) Hypertension: Plan: Upper side of normal (4) GERD (gastroesophageal reflux disease): Plan: Continue PPI (5) Dyslipidemia: Plan: Continue statin (6) Asthma: Plan: No exacerbation DVT prophylaxis Subcu Lovenox CODE STATUS Full Admission and Anticipated Discharge Date Admission Date: September 05, 2021 Subjective 09/06/2021 The patient was seen and examined in medical floor She complains to have some abdominal pain and bloated feeling following meal Denies any nausea and or vomiting and she has very small amount of bowel movement Review of Systems Review of Systems: All systems reviewed and are unremarkable except as noted below Gastrointestinal: + abdominal pain and + bloating; no nausea and no vomiting Physical Exam Physical Exam: Lying in bed very anxious Constitutional: well developed, well nourished, + ill appearing and average body habitus Eyes: PERRL, conjunctivae normal, anicteric sclerae ENMT: external ear and nose normal, oropharynx normal Neck: trachea midline, no thyromegaly Respiratory: no respiratory distress and no cough Auscultation: lungs clear to auscultation bilaterally Cardiovascular: Rate/Rhythm: regular rate and regular rhythm; not tachycardic Heart Sounds: normal S1 and normal S2; no murmur Extremities: + edema (Trace edema bilaterally) Gastrointestinal (Abdomen): Inspection/Auscultation: + abdomen distended and normal bowel sounds Percussion/Palpation: + abdomen tender (Mildly tender left lower quadrant with rebound tenderness) and abdomen soft Musculoskeletal: No acute arthritis in any joint Neurologic: Alert, awake and oriented x3 Lymphatic: no cervical or axillary lymphadenopathy Results & Data Results & Data ([facility]) Vital Signs (Past 12 Hours) Vital Signs Temp Pulse Resp BP Pulse Ox 09/06/21 07:34 36.6 C 60 16 145/78 H 97 Laboratory Results Short CBC 09/06/21 Range/Units 08:09 WBC 4.42 L (4.8-10.8) K/uL Hgb 10.9 L (12.0-16.0) g/dL Hct 34.8 L (37-47) % Plt Count 242 (130-400) K/uL BMP 09/06/21 08:09 Sodium 142 Potassium 3.7 Chloride 111 H Carbon Dioxide 26 BUN 6 L Creatinine 0.72 Glucose 109 H Calcium 8.7 Medications Administered Current Inpatient Medications Acetaminophen (Acetaminophen 325 Mg Tab) 650 mg PO Q4H PRN PRN Reason: pain/fever Stop: 10/05/21 04:29 Last Admin: 09/06/21 03:42 Dose: 650 mg Documented by: Albuterol (Albuterol 0.083% Nebu Soln 3 Ml Vial) 2.5 mg INH Q4H PRN PRN Reason: Shortness Of Breath Stop: 10/05/21 04:29 Ascorbic Acid (Ascorbic Acid 500 Mg Tab) 1,000 mg PO DAILY DEANGELO Stop: 10/05/21 08:59 Last Admin: 09/06/21 08:42 Dose: 1,000 mg Documented by: Aspirin (Aspirin 81 Mg Ectab) 81 mg PO DAILY DEANGELO Stop: 10/05/21 08:59 Last Admin: 09/06/21 09:09 Dose: Not Given Documented by: Clopidogrel Bisulfate (Clopidogrel Bisulfate 75 Mg Tab) 75 mg PO QAM DEANGELO Stop: 10/05/21 08:59 Last Admin: 09/06/21 08:42 Dose: 75 mg Documented by: Enoxaparin Sodium (Enoxaparin Inj 40 Mg/0.4 Ml Syr) 40 mg SQ Q24H DEANGELO Stop: 10/05/21 05:59 Last Admin: 09/06/21 05:47 Dose: 40 mg Documented by: Fluticasone Propionate (Fluticasone Propionate Na Spr 16 Gm Btl) 2 sprays NA QAM PRN PRN Reason: Congestion Stop: 10/05/21 04:29 Fluticasone/Vilanterol (Fluticasone/Vilanterol 200/25mcg 14 Puffs/Inhaler) 1 puffs INH DAILY DEANGELO Stop: 10/05/21 08:59 Last Admin: 09/06/21 06:08 Dose: 1 puffs Documented by: Famotidine 20 mg/ Syringe 5 mls @ 2.5 mls/min IV BID [facility] Stop: 10/05/21 08:59 Last Admin: 09/06/21 08:45 Dose: 2.5 mls/min Documented by: Ciprofloxacin (Cipro / D5w) 400 mg in 200 mls @ 100 mls/hr IV Q12H [facility]; Protocol Stop: 09/15/21 06:59 Last Infusion: 09/06/21 08:00 Dose: Infused Documented by: Metronidazole (Flagyl) 500 mg in 100 mls @ 100 mls/hr IV Q8H [facility] Stop: 09/15/21 05:59 Last Admin: 09/06/21 13:22 Dose: 100 mls/hr Documented by: Sodium Chloride (Nss 1000ml) 1,000 mls @ 125 mls/hr IV .Q8H [facility] Stop: 10/05/21 05:14 Last Admin: 09/06/21 13:21 Dose: 125 mls/hr Documented by: Meclizine HCl (Meclizine 12.5 Mg Tab) 12.5 mg PO TID PRN PRN Reason: Dizziness Stop: 10/05/21 04:29 Montelukast Sodium (Montelukast Sodium 10 Mg Tablet) 10 mg PO QAM [facility] Stop: 10/05/21 08:59 Last Admin: 09/06/21 08:42 Dose: 10 mg Documented by: Ondansetron HCl (Ondansetron Inj 2 Mg/Ml 2 Ml Vial) 4 mg IV Q6H PRN PRN Reason: Nausea Stop: 10/05/21 04:29 Pantoprazole Sodium ([facility] 40 Mg Tab) [facility] Stop: 10/05/21 06:29 Last Admin: 09/06/21 05:47 Dose: 40 mg Documented by: Pravastatin Sodium (Pravastatin Sod 40 Mg Tab) 40 mg PO HS [facility] Stop: 10/05/21 20:59 Last Admin: 09/05/21 20:48 Dose: 40 mg Documented by: Simethicone (Simethicone 80 Mg Chew) 80 mg PO Q6H PRN PRN Reason: Dyspepsia Stop: 10/05/21 22:20 Last Admin: 09/05/21 23:16 Dose: 80 mg Documented by: Sucralfate (Sucralfate 1 Gm Tab) 1 gm PO ACHS [facility] Stop: 10/05/21 07:29 Last Admin: 09/06/21 12:44 Dose: 1 gm Documented by: Umeclidinium Gould (Umeclidinium Gould 62.5mcg/Blister 7 Puffs/Inhaler) 1 puffs INH QAM DEANGELO Stop: 10/05/21 08:59 Last Admin: 09/06/21 08:43 Dose: 1 puffs Documented by: Verapamil HCl (Verapamil Hcl 120 Mg Tabcr) 120 mg PO DAILY [facility] Stop: 10/05/21 08:59 Last Admin: 09/06/21 08:43 Dose: 120 mg Documented by: Vitamin D (Cholecalciferol 1,000 Units 25 Mcg Tab) 5,000 units PO DAILY [facility] Stop: 10/05/21 08:59 Last Admin: 09/06/21 09:09 Dose: Not Given Documented by: (1) Diverticulitis large intestine Diverticulitis bleeding: without bleeding Diverticulitis complication: without perforation or abscess Qualified Code(s): K57.32 - Diverticulitis of large intestine without perforation or abscess without bleeding
[2021-09-06] MEDS: PRAVASTATIN SOD 40 MG TAB PO SCH (21:56)
[2021-09-07] MEDS: metroNIDAZOLE 500 MG/100 ML BAG IV SCH ×3 (05:08→21:37)
[2021-09-07] MEDS: ENOXAPARIN INJ 40 MG/0.4 ML SYR SQ SCH (05:40)
[2021-09-07] MEDS: PANTOprazole 40 MG TAB PO SCH (05:40)
[2021-09-07] MEDS: CIPROFLOXACIN / D5W 400 MG/200 ML BAG IV SCH ×2 (06:03→17:57)
[2021-09-07 07:04] LABS: Basophils # (auto) 0.02 K/uL (0-0.2); Basophils % (auto) 0.4 %; Eosinophils # (auto) 0.59 K/uL (0-0.5); Eosinophils % (auto) 12.6 %; Hematocrit (blood only) 37.7 % (37-47); Immature Granulocytes # (auto) 0.01 K/uL (0.00-0.02); Immature Granulocytes % (auto) 0.2 %; Lymphocytes # (auto) 1.23 K/uL (1.2-3.4); Lymphocytes % (auto) 26.2 %; Mean Corpuscular Hemoglobin 28.4 pg (25-34); Mean Corpuscular Hgb Conc 31.8 g/dL (32-36); Mean Corpuscular Volume 89.3 fL (80-100); Mean Platelet Volume 11.6 fL (7.4-10.4); Monocytes # (auto) 0.56 K/uL (0.11-0.59); Monocytes % (auto) 11.9 %; Neutrophils # (auto) 2.29 K/uL (1.4-6.5); Neutrophils % (auto) 48.7 %; Platelet Count 231 K/uL (130-400); RDW Coefficient of Variation 13.3 % (11.5-14.5); RDW Standard Deviation 43.6 fL (36.4-46.3); Red Blood Count 4.22 M/uL (4.2-5.4)
--- NOTE | 2021-09-07 07:38 | Surgery Progress Note ---
Date of Service September 07, 2021 Assessment & Plan (1) Diverticulitis large intestine: Plan: 66-year-old woman with uncomplicated diverticulitis. There is no evidence of perforation on the CT scan. Her white blood cell count is normal. Agree with continued IV antibiotics. She may be switched over to oral antibiotics in the next 24 hours. No requirement for surgical intervention at this time. We will follow along. Hospital day #3: Pain is significantly improved, however is still present. Continue IV antibiotics for now. Most likely switch to oral and discharge to home tomorrow. When she is discharged, she will need outpatient follow-up with surgery in 2 weeks. Admission and Anticipated Discharge Date Admission Date: September 05, 2021 Subjective She states that she is feeling much better today. She has significantly less pain. She is tolerating a diet. She denies nausea vomiting. Physical Exam Constitutional: WD/WN, vitals as above Eyes: PERRL, conjunctivae normal, anicteric sclerae Neck: trachea midline, no thyromegaly Gastrointestinal (Abdomen): Inspection/Auscultation: abdomen normal to inspection; abdomen not distended Percussion/Palpation: + abdomen tender (Mild TTP in LLQ ) and abdomen soft; no guarding and abdomen not rigid Skin: no rashes, warm and dry Psychiatric: A+Ox3, euthymic affect Results & Data ([facility]) Vital Signs (Past 12 Hours) Vital Signs Temp Pulse Resp BP Pulse Ox 09/06/21 23:00 36.9 C 59 L 16 106/62 96 (1) Diverticulitis large intestine Diverticulitis bleeding: without bleeding Diverticulitis complication: without perforation or abscess Qualified Code(s): K57.32 - Diverticulitis of large intestine without perforation or abscess without bleeding
[2021-09-07 08:11] LABS: BUN Creatinine Ratio 10.5 (10-20); Calcium 9.2 mg/dl (8.5-10.1); Creatinine Clr Calc Pharmacy 64.4 ml/min; Est GFR (African American) 87.1 ml/min; Est GFR (Non-African American) 75.2 ml/min
[2021-09-07] MEDS: ASCORBIC ACID 500 MG TAB PO SCH (08:55)
[2021-09-07] MEDS: SUCRALFATE 1 GM TAB PO SCH ×4 (08:56→21:36)
[2021-09-07] MEDS: CLOPIDOGREL BISULFATE 75 MG TAB PO SCH (08:57)
[2021-09-07] MEDS: CHOLECALCIFEROL 1,000 UNITS 25 MCG TAB PO SCH (08:57)
[2021-09-07] MEDS: ASPIRIN 81 MG ECTAB PO SCH (08:57)
[2021-09-07] MEDS: FLUTICASONE/VILANTEROL 200/25MCG 14 PUFFS/INHALER INH SCH (08:59)
[2021-09-07] MEDS: MONTELUKAST SODIUM 10 MG TABLET PO SCH (09:00)
[2021-09-07] MEDS: UMECLIDINIUM BROMIDE 62.5MCG/BLISTER 7 PUFFS/INHALER INH SCH (09:00)
[2021-09-07] MEDS: VERAPAMIL HCL 120 MG TABCR PO SCH (09:00)
[2021-09-07 09:20] LABS: Potassium 4.2 mmol/L (3.5-5.1)
[2021-09-07] MEDS: FAMOTIDINE 20 MG in SYRINGE 3 ML IV SCH ×2 (09:39→21:41)
--- NOTE | 2021-09-07 10:54 | Hospitalist Progress Note ---
Date of Service September 07, 2021 Assessment & Plan (1) Diverticulitis large intestine: Plan: This is a 66-year-old female who has significant past medical history of HTN, HLD, asthma, GERD, history of nephrolithiasis, history of CVA who presented to ED on 09/05/2021 secondary to abdominal pain. CT scan: Acute diverticulitis involving the proximal sigmoid colon. No perforation or abscess. Follow up colonoscopy suggested once the diverticulitis has resolved to exclude the less likely possibility of an underlying colonic lesion. Had C-scope [address] Smith, unremarkable, recent Upper Endoscopy 04/2021 Appreciate surgery input and recommendation-continue with conservative management diet advanced to regular, monitor +BM, pain improving, per general surgery continue IV antibiotics Cipro/Flagyl for additional 24 hours and then transition to oral Pt requesting probiotic, will add She is also requesting to speak to book[employer] clerk Likely discharge to home tomorrow as long as continued improvement (2) Abdominal pain, LLQ: Plan: Secondary to acute sigmoid diverticulitis Improving (3) Hypertension: Plan: continue verapamil BP stable (4) Stroke: Plan: Hx of CVA on asa, plavix (5) GERD (gastroesophageal reflux disease): Plan: Continue PPI (6) Dyslipidemia: Plan: Continue statin (7) Asthma: Plan: No exacerbation continue home inhalers Dipso: med/surg, likely d/c home in am. FULL CODE PCP: ANTONIO Carrillo Pt was seen and examined in collaboration with Dr. Sims, please see addendum Admission and Anticipated Discharge Date Admission Date: September 05, 2021 Supervising Physician Co-Signing Physician Notes Attending addendum The patient was seen and examined in medical floor She still has some pain in the abdomen and has been having diarrhea No fever and no chills Tolerating clears On examination Hemodynamically stable and afebrile Abdomen-mildly tender left lower quadrant without guarding and rigidity, bowel sounds present Her labs reviewed We will advance diet as tolerated We will continue current IV antibiotic Possible discharge tomorrow Agree with assessment and plan as documented by Clara Sims Subjective Patient seen and examined in room 383. Follow-up acute diverticulitis. Overall she is feeling much improved. She continues to have mild left lower quadrant abdominal pain with palpation. She denies any nausea and vomiting and is tolerating diet. She denies fever, chills, sweats, lightheadedness, dizziness, chest pain, shortness of breath, URI symptoms, nausea, vomiting and hematochezia. +BM today. Review of Systems Review of Systems: All systems reviewed & are unremarkable except as noted in HPI & below Physical Exam Physical Exam: Gen: WD/WN, NAD, A&O x3 HEENT: Normocephalic, atraumatic, conjunctivae moist, sclerae anicteric, mucous membranes moist. Lung: Clear to Auscultation bilaterally, no wheezes/rales/rhonchi Heart: Regular rate, regular rhythm, no murmurs, rubs, or gallops Abdomen: Soft, mild pain to palpation to left lower quadrant, no rebound, no guarding, no rigidity, +BS x 4 Extremities: No edema Skin: Warm, no rash, negative turgor. Results & Data Results & Data ([facility]) Vital Signs (Past 12 Hours) Vital Signs Temp Pulse Resp BP Pulse Ox 09/07/21 08:36 36.9 C 60 14 144/77 H 98 09/06/21 23:00 36.9 C 59 L 16 106/62 96 Laboratory Results Short CBC 09/07/21 Range/Units 06:12 WBC 4.70 L (4.8-10.8) K/uL Hgb 12.0 (12.0-16.0) g/dL Hct 37.7 (37-47) % Plt Count 231 (130-400) K/uL BMP 09/07/21 09/07/21 06:12 08:33 Sodium 139 Potassium 4.2 Chloride 108 H Carbon Dioxide 23 BUN 9 Creatinine 0.81 Glucose 103 H Calcium 9.2 (1) Diverticulitis large intestine Diverticulitis bleeding: without bleeding Diverticulitis complication: without perforation or abscess Qualified Code(s): K57.32 - Diverticulitis of large intestine without perforation or abscess without bleeding
[2021-09-07] MEDS: SACCHAROMYCES BOULARDII 250 MG CAP PO SCH (12:12)
[2021-09-07] MEDS: ACETAMINOPHEN 325 MG TAB PO PRN (13:28)
[2021-09-07] MEDS: PRAVASTATIN SOD 40 MG TAB PO SCH (21:37)
[2021-09-08] MEDS: PANTOprazole 40 MG TAB PO SCH (05:33)
[2021-09-08] MEDS: ENOXAPARIN INJ 40 MG/0.4 ML SYR SQ SCH (05:33)
[2021-09-08] MEDS: metroNIDAZOLE 500 MG/100 ML BAG IV SCH ×2 (05:33→13:38)
[2021-09-08] MEDS: CIPROFLOXACIN / D5W 400 MG/200 ML BAG IV SCH ×2 (06:45→21:19)
[2021-09-08 08:02] LABS: BUN Creatinine Ratio 16.2 (10-20); Calcium 9.7 mg/dl (8.5-10.1); Creatinine Clr Calc Pharmacy 64.4 ml/min; Est GFR (African American) 87.1 ml/min; Est GFR (Non-African American) 75.2 ml/min; Potassium 3.8 mmol/L (3.5-5.1)
[2021-09-08] MEDS: CHOLECALCIFEROL 1,000 UNITS 25 MCG TAB PO SCH ×2 (09:01→09:09)
[2021-09-08] MEDS: CLOPIDOGREL BISULFATE 75 MG TAB PO SCH (09:02)
[2021-09-08] MEDS: ASCORBIC ACID 500 MG TAB PO SCH (09:02)
[2021-09-08] MEDS: SUCRALFATE 1 GM TAB PO SCH ×4 (09:03→21:24)
[2021-09-08] MEDS: ASPIRIN 81 MG ECTAB PO SCH ×2 (09:03→09:09)
[2021-09-08] MEDS: FLUTICASONE/VILANTEROL 200/25MCG 14 PUFFS/INHALER INH SCH (09:04)
[2021-09-08] MEDS: UMECLIDINIUM BROMIDE 62.5MCG/BLISTER 7 PUFFS/INHALER INH SCH (09:04)
[2021-09-08] MEDS: VERAPAMIL HCL 120 MG TABCR PO SCH ×3 (09:05→12:10)
[2021-09-08] MEDS: MONTELUKAST SODIUM 10 MG TABLET PO SCH (09:05)
[2021-09-08] MEDS: SACCHAROMYCES BOULARDII 250 MG CAP PO SCH (09:05)
[2021-09-08] MEDS: FAMOTIDINE 20 MG in SYRINGE 3 ML IV SCH ×2 (09:28→21:27)
--- NOTE | 2021-09-08 12:29 | Hospitalist Progress Note ---
Date of Service September 08, 2021 Assessment & Plan (1) Diverticulitis large intestine: Plan: This is a 66-year-old female who has significant past medical history of HTN, HLD, asthma, GERD, history of nephrolithiasis, history of CVA who presented to ED on 09/05/2021 secondary to abdominal pain. CT scan: Acute diverticulitis involving the proximal sigmoid colon. No perforation or abscess. Follow up colonoscopy suggested once the diverticulitis has resolved to exclude the less likely possibility of an underlying colonic lesion. Had C-scope [address] Smith, unremarkable, recent Upper Endoscopy 04/2021 Appreciate surgery input and recommendation-continue with conservative management diet advanced to regular, monitor +BM, pain improving, per general surgery continue IV antibiotics Cipro/Flagyl for additional 24 hours and then transition to oral Pt requesting probiotic, will add Discussed low fiber diet for now Seen and examined by gen surg tomorrow who recommends continued admission for additional 24hrs 2/2 to abd pain, bloating Likely discharge to home tomorrow as long as continued improvement (2) Abdominal pain, LLQ: Plan: Secondary to acute sigmoid diverticulitis Improving (3) Hypertension: Plan: continue verapamil BP stable (4) Stroke: Plan: Hx of CVA on asa, plavix (5) GERD (gastroesophageal reflux disease): Plan: Continue PPI (6) Dyslipidemia: Plan: Continue statin (7) Asthma: Plan: No exacerbation continue home inhalers Dipso: med/surg, likely d/c home in am. FULL CODE PCP: ANTONIO Carrillo Pt was seen and examined in collaboration with Dr. Sims, please see addendum Admission and Anticipated Discharge Date Admission Date: September 05, 2021 Supervising Physician Co-Signing Physician Notes Attending addendum The patient was seen and examined in medical floor She has been having bloated feeling following breakfast today Pain is a little better and has had bowel movement She is not ready to leave the hospital yet On examination Minimal distress at rest Hemodynamically stable Abdomen-mildly tender left lower quadrant without any guarding and rigidity, son present Extremities-negative for any edema Her labs noted We will advance diet as tolerated likely discharge tomorrow Agree with assessment and plan as outlined above by ANTONIO Gaines DR Subjective Patient seen and examined in room 383. Follow-up acute diverticulitis. Overall she is feeling much improved. Continues to have loose stool especially after meals. Feels LLQ Abd pain is improving. She is sleeping terribly due to roommate. She denies nausea and vomiting and is tolerating diet otherwise. She denies fever, chills, sweats, lightheadedness, dizziness, chest pain, shortness of breath, URI symptoms, nausea, vomiting and hematochezia. +BM today yesterday x 2. Review of Systems Review of Systems: All systems reviewed & are unremarkable except as noted in HPI & below Physical Exam Physical Exam: Gen: WD/WN, NAD, A&O x3 HEENT: Normocephalic, atraumatic, conjunctivae moist, sclerae anicteric, mucous membranes moist. Lung: Clear to Auscultation bilaterally, no wheezes/rales/rhonchi Heart: Regular rate, regular rhythm, no murmurs, rubs, or gallops Abdomen: Soft, mild pain to palpation to left lower quadrant, no rebound, no guarding, no rigidity, +BS x 4 Extremities: No edema Skin: Warm, no rash, negative turgor. Results & Data Results & Data ([facility]) Vital Signs (Past 12 Hours) Vital Signs Temp Pulse Resp BP Pulse Ox 09/08/21 07:10 36.6 C 53 L 17 123/69 96 Laboratory Results [facility] 09/08/21 06:31 Sodium 141 Potassium 3.8 Chloride 109 H Carbon Dioxide 24 BUN 13 Creatinine 0.81 Glucose 108 H Calcium 9.7 Medications Administered Current Inpatient Medications Acetaminophen (Acetaminophen 325 Mg Tab) 650 mg PO Q4H PRN PRN Reason: pain/fever Stop: 10/05/21 04:29 Last Admin: 09/07/21 13:28 Dose: 650 mg Documented by: Albuterol (Albuterol 0.083% Nebu Soln 3 Ml Vial) 2.5 mg INH Q4H PRN PRN Reason: Shortness Of Breath Stop: 10/05/21 04:29 Ascorbic Acid (Ascorbic Acid 500 Mg Tab) 1,000 mg PO DAILY [facility] Stop: 10/05/21 08:59 Last Admin: 09/08/21 09:02 Dose: 1,000 mg Documented by: Aspirin (Aspirin 81 Mg Ectab) 81 mg PO DAILY [facility] Stop: 10/05/21 08:59 Last Admin: 09/08/21 09:09 Dose: Not Given Documented by: Clopidogrel Bisulfate (Clopidogrel Bisulfate 75 Mg Tab) 75 mg PO QAM [facility] Stop: 10/05/21 08:59 Last Admin: 09/08/21 09:02 Dose: 75 mg Documented by: Enoxaparin Sodium (Enoxaparin Inj 40 Mg/0.4 Ml Syr) 40 mg SQ Q24H [facility] Stop: 10/05/21 05:59 Last Admin: 09/08/21 05:33 Dose: 40 mg Documented by: Fluticasone Propionate (Fluticasone Propionate Na Spr 16 Gm Btl) 2 sprays NA QAM PRN PRN Reason: Congestion Stop: 10/05/21 04:29 Fluticasone/Vilanterol (Fluticasone/Vilanterol 200/25mcg 14 Puffs/Inhaler) 1 puffs INH DAILY [facility] Stop: 10/05/21 08:59 Last Admin: 09/08/21 09:04 Dose: 1 puffs Documented by: Famotidine 20 mg/ Syringe 5 mls @ 2.5 mls/min IV BID [facility] Stop: 10/05/21 08:59 Last Admin: 09/08/21 09:28 Dose: 2.5 mls/min Documented by: Ciprofloxacin (Cipro / D5w) 400 mg in 200 mls @ 100 mls/hr IV Q12H [facility]; Protocol Stop: 09/15/21 06:59 Last Infusion: 09/08/21 08:30 Dose: Infused Documented by: Metronidazole (Flagyl) 500 mg in 100 mls @ 100 mls/hr IV Q8H [facility] Stop: 09/15/21 05:59 Last Infusion: 09/08/21 06:45 Dose: Infused Documented by: Meclizine HCl (Meclizine 12.5 Mg Tab) 12.5 mg PO TID PRN PRN Reason: Dizziness Stop: 10/05/21 04:29 Montelukast Sodium (Montelukast Sodium 10 Mg Tablet) 10 mg PO QAM [facility] Stop: 10/05/21 08:59 Last Admin: 09/08/21 09:05 Dose: 10 mg Documented by: Ondansetron HCl (Ondansetron Inj 2 Mg/Ml 2 Ml Vial) 4 mg IV Q6H PRN PRN Reason: Nausea Stop: 10/05/21 04:29 Pantoprazole Sodium (Pantoprazole 40 Mg Tab) 40 mg PO DAILYBB [facility] Stop: 10/05/21 06:29 Last Admin: 09/08/21 05:33 Dose: 40 mg Documented by: Pravastatin Sodium (Pravastatin Sod 40 Mg Tab) 40 mg PO HS [facility] Stop: 10/05/21 20:59 Last Admin: 09/07/21 21:37 Dose: 40 mg Documented by: Saccharomyces Boulardii (Saccharomyces Boulardii 250 Mg Cap) 250 mg PO DAILY [facility] Stop: 10/07/21 10:59 Last Admin: 09/08/21 09:05 Dose: 250 mg Documented by: Simethicone (Simethicone 80 Mg Chew) 80 mg PO Q6H PRN PRN Reason: Dyspepsia Stop: 10/05/21 22:20 Last Admin: 09/05/21 23:16 Dose: 80 mg Documented by: Sucralfate (Sucralfate 1 Gm Tab) 1 gm PO [facility] Stop: 10/05/21 07:29 Last Admin: 09/08/21 12:10 Dose: 1 gm Documented by: Umeclidinium Cuthbert (Umeclidinium Cuthbert 62.5mcg/Blister 7 Puffs/Inhaler) 1 puffs INH QAM [facility] Stop: 10/05/21 08:59 Last Admin: 09/08/21 09:04 Dose: 1 puffs Documented by: Verapamil HCl (Verapamil Hcl 120 Mg Tabcr) 120 mg PO DAILY [facility] Stop: 10/05/21 08:59 Last Admin: 09/08/21 12:10 Dose: 120 mg Documented by: Vitamin D (Cholecalciferol 1,000 Units 25 Mcg Tab) 5,000 units PO DAILY [facility] Stop: 10/05/21 08:59 Last Admin: 09/08/21 09:09 Dose: Not Given Documented by: (1) Diverticulitis large intestine Diverticulitis bleeding: without bleeding Diverticulitis complication: without perforation or abscess Qualified Code(s): K57.32 - Diverticulitis of large intestine without perforation or abscess without bleeding
--- NOTE | 2021-09-08 12:40 | Surgery Progress Note ---
Date of Service September 08, 2021 Assessment & Plan (1) Diverticulitis large intestine: Plan: 66-year-old woman with uncomplicated diverticulitis. There is no evidence of perforation on the CT scan. Her white blood cell count normalized. -afebrile, vitals stable - bloating with food intake - pain in left abdomen, improving - c. diff negative Plan: Advised to eat slowly, stop if becomes bloated encouraged ambulating in room and sitting up in chair Continue low fiber diet continue IV abx, transition to oral tomorrow continue pain management as needed she will need outpatient follow-up with surgery in 2 weeks and colonoscopy in 6-[address] Humphreys was present during my examination and agrees with above. Admission and Anticipated Discharge Date Admission Date: September 05, 2021 Subjective feeling bloated after eating pain still in the left lower and upper abdomen passed liquid stool yesterday, none so far today not passing much gas no nausea or vomiting not ambulating hallway, worried about COVID. ambulating in room Physical Exam Constitutional: WD/WN, vitals as above no acute distress and not ill appearing Respiratory: normal respiratory effort; no respiratory distress, no labored breathing and no retractions Gastrointestinal (Abdomen): Inspection/Auscultation: abdomen normal to inspection and + abdomen distended (mild) Percussion/Palpation: + abdomen tender (left lower and upper guadrants) and abdomen soft; no guarding and abdomen not rigid Skin: no rashes, warm and dry Psychiatric: Orientation: alert and oriented x 3 Results & Data ([facility]) Vital Signs (Past 12 Hours) Vital Signs Temp Pulse Resp BP Pulse Ox 09/08/21 07:10 36.6 C 53 L 17 123/69 96 Laboratory Results 09/08/21 09/07/21 Range/Units 06:31 Unknown Sodium 141 (136-145) mmol/L Potassium 3.8 (3.5-5.1) mmol/L Chloride 109 H (98-107) mmol/L Carbon Dioxide 24 (21-32) mmol/L Anion Gap 8.0 (3-11) BUN 13 (7-18) mg/dl Creatinine 0.81 (0.6-1.2) mg/dl Est Cr Clr Drug Dosing 64.4 ml/min Est GFR ( Amer) 87.1 ml/min Est GFR (Non-Af Amer) 75.2 ml/min BUN/Creatinine Ratio 16.2 (10-20) Glucose 108 H (70-99) mg/dl Calcium 9.7 (8.5-10.1) mg/dl Stl C. diff Tox B Gene Negative Cdiff Gene (Neg) (1) Diverticulitis large intestine Diverticulitis bleeding: without bleeding Diverticulitis complication: w ithout perforation or abscess Qualified Code(s): K57.32 - Diverticulitis of large intestine without perforation or abscess without bleeding
[2021-09-08] MEDS: PRAVASTATIN SOD 40 MG TAB PO SCH (21:24)
[2021-09-08] MEDS: metroNIDAZOLE 500 MG TAB PO SCH (21:24)
[2021-09-08] MEDS: ACETAMINOPHEN 325 MG TAB PO PRN (23:40)
[2021-09-09] MEDS: metroNIDAZOLE 500 MG TAB PO SCH ×2 (06:39→14:03)
[2021-09-09] MEDS: PANTOprazole 40 MG TAB PO SCH (06:39)
[2021-09-09] MEDS: ENOXAPARIN INJ 40 MG/0.4 ML SYR SQ SCH (06:39)
[2021-09-09] MEDS: ASPIRIN 81 MG ECTAB PO SCH (08:09)
[2021-09-09] MEDS: SUCRALFATE 1 GM TAB PO SCH ×2 (08:12→11:52)
[2021-09-09] MEDS: FAMOTIDINE 20 MG in SYRINGE 3 ML IV SCH (08:13)
[2021-09-09] MEDS ORDERED: CIPROFLOXACIN 500 MG TAB PO SCH (09:00)
[2021-09-09] MEDS: FLUTICASONE/VILANTEROL 200/25MCG 14 PUFFS/INHALER INH SCH (09:07)
[2021-09-09] MEDS: UMECLIDINIUM BROMIDE 62.5MCG/BLISTER 7 PUFFS/INHALER INH SCH (09:07)
[2021-09-09] MEDS: CHOLECALCIFEROL 1,000 UNITS 25 MCG TAB PO SCH (09:08)
[2021-09-09] MEDS: VERAPAMIL HCL 120 MG TABCR PO SCH (09:08)
[2021-09-09] MEDS: CLOPIDOGREL BISULFATE 75 MG TAB PO SCH (09:08)
[2021-09-09] MEDS: SACCHAROMYCES BOULARDII 250 MG CAP PO SCH (09:08)
[2021-09-09] MEDS: MONTELUKAST SODIUM 10 MG TABLET PO SCH (09:08)
[2021-09-09] MEDS: ASCORBIC ACID 500 MG TAB PO SCH (09:09)
[2021-09-09] MEDS: CIPROFLOXACIN / D5W 400 MG/200 ML BAG IV SCH (10:49)
--- NOTE | 2021-09-09 11:27 | Discharge Summary ---
Date of Service September 09, 2021 Admission HPI Per Admitting Provider HISTORY OF PRESENT ILLNESS: A 66-year-old female with past medical history significant for hyperlipidemia, asthma, chronic allergic rhinitis, history of CVA, hypertension, tricuspid valve regurgitation, GERD, osteoporosis, migraine, who presents with abdominal pain. The patient says the abdominal pain started last Tuesday, but night it got worse, she could not sleep, and as it was not getting better, she came here and found to have acute diverticulitis. Denies any nausea or vomiting. Did not move her bowels yesterday. No blood in the stools. Normal bladder movements. No fevers, no chest pain, no shortness of breath, no cough, no headache, no blurred visions, no runny nose, no sore throat. Currently, resting comfortably and hemodynamically stable. She was given Rocephin in the ER, following which she developed allergic reaction with itching. She was given steroid and Benadryl. Currently, the allergic reaction is improved. Admission Exam Per Admitting Provider PHYSICAL EXAMINATION: GENERAL: The patient is of moderate build, not in acute distress. VITAL SIGNS: Temperature 36.7, pulse 71, respiratory rate 20, blood pressure 156/85, and oxygen 99% on room air. HEENT: Pupils equal, round and reactive to light. Oral mucosa moist. NECK: No JVD, no neck masses. CARDIOVASCULAR: S1 and S2 heard. Regular rate and rhythm. No murmur, no gallop. RESPIRATORY SYSTEM: Normal AP diameter. No accessory muscle use. No wheezing, no crackles. ABDOMEN: Soft. Bowel sounds sluggish. Tenderness in left lower quadrant and guarding present. No distention. CENTRAL NERVOUS SYSTEM: Cranial nerves II-XII grossly intact, nonfocal. EXTREMITIES: No edema, no erythema. Principal Diagnosis Acute Diverticulitis Discharge Exam Gen: WD/WN, NAD, A&O x3 HEENT: Normocephalic, atraumatic, conjunctivae moist, sclerae anicteric, mucous membranes moist. Lung: Clear to Auscultation bilaterally, no wheezes/rales/rhonchi Heart: Regular rate, regular rhythm, no murmurs, rubs, or gallops Abdomen: Soft, NT, ND +BS x 4 Extremities: No edema Skin: Warm, no rash, negative turgor. Discharge Data Allergies Allergy/AdvReac Type Severity Reaction Status Date / Time orphenadrine Allergy Severe ANAPHYLAXIS Verified 09/04/21 22:20 sodium metabisulfite Allergy Severe ANAPHYLAXIS Verified 09/04/21 22:20 ceftriaxone Allergy Intermediate Swelling Verified 09/05/21 02:45 of Lip/Tongue/Throat atorvastatin [From Lipitor] AdvReac Intermediate INSOMNIA,IT Verified 09/04/21 22:20 RAINA morphine AdvReac Intermediate CONFUSION, Verified 09/04/21 22:20 UNSTEADY GAIT, PANIC Consultations 09/05/21 02:31 ED Decision to Admit Stat 09/05/21 08:00 Consult General Surgery Routine Ordered Studies Abdomen/Pelvis CT 09/04/21 22:[address] WITH IV CONTRAST CT DOSE: 399.61 mGy.cm HISTORY: LLQ pain, urinary frequency TECHNIQUE: Multiaxial CT images of the abdomen and pelvis were performed following the use of intravenous contrast. A dose lowering technique was utilized adhering to the principles of ALARA. COMPARISON STUDY: Abdomen and pelvis CT 02/28/2015. FINDINGS: The lung bases are clear. There is a small hiatus hernia, unchanged. No pneumoperitoneum. No pneumatosis. No suspicious lytic are blastic osseous lesions. The spleen, adrenal glands, pancreas, gallbladder, and kidneys are unremarkable. No hydronephrosis. The bladder, uterus, bilateral adnexa are within normal limits. No retroperitoneal lymphadenopathy. Mild calcified plaque within the normal caliber abdominal aorta. Stable 1 cm hypodense lesion within the right hepatic lobe. This is likely benign given the long-term stability. No evidence for bowel obstruction. Normal appendix. Focal thickening within the proximal sigmoid colon within inflamed diverticulum and adjacent pericolonic fat stranding. This is consistent with an acute diverticulitis. No perforation or abscess identified. IMPRESSION: 1. Acute diverticulitis involving the proximal sigmoid colon. No perforation or abscess. Follow up colonoscopy suggested once the diverticulitis has resolved to exclude the less likely possibility of an underlying colonic lesion. 2. No evidence for bowel obstruction. 3. Normal appendix. 4. No hydronephrosis. 5. Small hiatus hernia. ACT 112: Negative or not required by law. Electronically signed by: Kristofer Mary M.D. 09/05/2021 7:08 AM Hospital Course (1) Diverticulitis large intestine: This is a 66-year-old female who has significant past medical history of HTN, HLD, asthma, GERD, history of nephrolithiasis, history of CVA who presented to ED on 09/05/2021 secondary to abdominal pain. CT scan: Acute diverticulitis involving the proximal sigmoid colon. No perforation or abscess. Follow up colonoscopy suggested once the diverticulitis has resolved to exclude the less likely possibility of an underlying colonic lesion. Her last C-scope [address] Smith, unremarkable & recent Upper Endoscopy 04/2021. General surgery was consulted who recommended conservative management with IV fluids, IV antibiotics ciprofloxacin and Flagyl and bowel rest. Her symptoms gradually improved and abdominal pain subsided. Her diet was increased and on day of discharge was tolerating a low fiber diet. On day of discharge she was transitioned to oral ciprofloxacin 500 mg twice daily and Flagyl 500 mg 3 times daily to complete an additional 7-day course. It is recommended she follow-up with general surgery in 2 weeks and will need to undergo colonoscopy in 6 to 8 weeks. She was educated to maintain a low fiber diet until symptoms completely resolved. At that point time it is recommended she maintain a high-fiber diet and stay well-hydrated. On day of discharge she tolerated her breakfast. She was pain- free in the abdomen at rest and on palpation and was moving her bowels. She was in stable condition and ready to be discharged to home. (2) Abdominal pain, LLQ: (3) Hypertension: (4) Stroke: (5) GERD (gastroesophageal reflux disease): (6) Dyslipidemia: (7) Asthma: Total Time Total Time Spent Total Time Spent (In Minutes): 45 minutes Discharge Plan Discharge Items Patient Disposition: Home - Self-Care Reason For Visit: ABDOMINAL PAIN Discharge Diagnosis: Acute Diverticulitis Condition on Discharge: Good Activity: Resume your previous activity Lifting: Gradually increase as tolerated Bathing: No limitations Driving/Machine Use: Resume 1 day after discharge Non-emergency contact: Primary Care Provider Call non-emergency contact if: you have any medication questions, your symptoms worsen, your pain is not controlled, your pain is worsening, your pain is unusual for you, your pain is concerning for you, you have a fever and your temperature is above 101 Follow-up/Referrals: Missael Truong MD [Physician] - 09/11/21 11:00 am (09/11/21 at 11:00 A.M.) Diet: Low Fiber Addtl Attending Provider Instructions: MEDICATION CHANGES: Cipro 400mg by mouth twice daily until gone - Antibiotic Flagyl 500mg by mouth three times daily until gone - Antibiotic Probiotic daily while on antibiotics - Probiotic Continue all other medications as prescribed. SUMMARY OF TEST RESULTS: You were admitted to hospital secondary to abdominal pain. You were found to have acute diverticulitis of large intestine and treated with IV antibiotics. You were treated conservatively with bowel rest and IV fluids. Your diet was slowly advanced and on day discharge you were tolerating a low fiber diet. PENDING TEST RESULTS: None RECOMMENDATIONS FOR FOLLOW-UP: Follow up with General Surgery, Dr. Gaytan and Dr. Humphreys in 2 weeks. Please completed antibiotics as directed. You will complete a 7 day course of oral antibiotics. I encourage you to follow a low fiber diet until symptoms completely resolved, handout provided for low fiber diet education. Once your symptoms have resolved and you are cleared from your family Doctor, I encourage you to maintain a high fiber diet, avoid constipation and stay well hydrated. Recommend drinking approximately 80 ounces of non caffeinated beverages like water daily. Please continue all other home medications as prescribed. Your last colonoscopy was in 2014, it is recommend you have a repeat Colonoscopy in 6-8 weeks after symptoms resolve. You may take Tylenol, 500mg, every 6 hours as needed for pain. Max dosage of Tylenol daily is 3,000mg. Recommend daily probiotic while on antibiotics. OTHER INSTRUCTIONS: Seek medical attention if you have: * temperature above 101 * chest pain or trouble breathing * abdominal pain, nausea, vomiting * diarrhea, dark stools or bloody stools * any unanswered questions or concerns Call 911 if symptoms are severe. Please take good care of yourself. It has been a pleasure taking care of you. Please take care of yourself. If you have any questions regarding your recent hospitalization please contact [facility] and request Brittni Antonyist @ [phone]. Clara Hernandez PA-C Pending Studies at Discharge: No Stand-Alone Forms: My [facility], Work/School Release, Smoking Cessation Medications and DC Order Prescriptions: New Saccharomyces boulardii [Florastor] 250 mg Capsule 250 mg PO DAILY Qty: 10 RF: 0 metronidazole 500 mg Tablet 500 mg PO Q8 Qty: 20 RF: 0 ciprofloxacin HCl 500 mg Tablet 500 mg PO BID Qty: 13 RF: 0 Continued clopidogrel [Plavix] 75 mg tablet 75 mg PO QAM RF: 0 naproxen sodium 550 mg Tablet 550 mg PO BID PRN (Reason: Pain) RF: 0 omeprazole 20 mg capsule,delayed release(DR/EC) 20 mg PO DAILYBB RF: 0 montelukast [Singulair] 10 mg tablet 10 mg PO QAM RF: 0 fluticasone propionate [Flonase Allergy Relief] 50 mcg/actuation spray,suspension 2 spray Intranasal QAM PRN (Reason: Congestion) RF: 0 Spiriva Respimat 1.25 mcg/actuation mist 2 puff Inhalation QAM RF: 0 pravastatin 40 mg tablet 40 mg PO HS RF: 0 famotidine 40 mg tablet 40 mg PO HS PRN (Reason: Acid Reflux) RF: 0 verapamil 120 mg tablet extended release 120 mg PO DAILY RF: 0 zinc 100 mg Tablet 100 mg PO DAILY RF: 0 ascorbic acid (vitamin C) [Vitamin C] 1,000 mg Tablet 1 g PO DAILY RF: 0 albuterol sulfate 2.5 mg /3 mL (0.083 %) Solution For Nebulization 2.5 mg INHALATION Q4H PRN (Reason: Shortness Of Breath) RF: 0 sucralfate [Carafate] 1 gram Tablet 1 g PO ACHS RF: 0 ondansetron HCl [Zofran] 4 mg Tablet 4 mg PO Q6H PRN (Reason: NAUSEA/VOMITING) RF: 0 meclizine 12.5 mg Tablet 12.5 mg PO TID PRN (Reason: Dizziness) RF: 0 aspirin 81 mg Tablet,Delayed Release (Dr/Ec) 81 mg PO DAILY RF: 0 acetaminophen [Tylenol Extra Strength] 500 mg Tablet 1,000 mg PO DIRECTED PRN (Reason: FEVER/PAIN) RF: 0 fluticasone propion-salmeterol [Advair Diskus] 500-50 mcg/dose Blister With Device 1 inh INHALATION BID RF: 0 ibuprofen 200 mg Tablet 600 mg PO TID PRN (Reason: Pain) RF: 0 albuterol sulfate 90 mcg/actuation HFA aerosol inhaler 2 puff INHALATION Q6H PRN (Reason: WHEEZING/SHORT OF BREATH) RF: 0 vitamin E 400 unit Capsule 400 unit PO DAILY RF: 0 coenzyme Q10 [CoQ-10] 100 mg Capsule 100 mg PO DAILY RF: 0 cholecalciferol (vitamin D3) [Vitamin D3] 125 mcg (5,000 unit) Tablet 125 mcg PO DAILY RF: 0 Turmeric-Curcumin 500 mg PO DAILY RF: 0 Discharge Orders: Discharge Order (Routine); Ordered 09/09/21 Ordered By: Clara Shepard/Other Patient Handouts: Low-Fiber Diet, Discharge Instructions for ... Admission Data Admit Date/Time: 09/05/21 03:45 Attending Provider: Angeles Sims Admit Provider: Daniele Garay Primary Care Provider: Mariluz Carrillo Other Providers: Daniele Garay ; Sinan Gaytan ; Vince Kulkarni ; Chichi De León ; Freda Mariano ; Pedro Montesinos ; Fidel Holly ; aPyal Hays ; Felecia Hernandez ; Emerson Wade Jr ; Taina Humphreys ; Giuliano Valadez ; Chanda Currie ; Clara Hernandez
--- NOTE | 2021-09-09 14:28 | Surgery Progress Note ---
Date of Service September 09, 2021 Assessment & Plan (1) Diverticulitis large intestine: Plan: 66-year-old woman with uncomplicated diverticulitis. There is no evidence of perforation on the CT scan. Her white blood cell count normalized. -afebrile, vitals stable - bloating with food intake - pain in left abdomen, improving - c. diff negative Plan: Advised to eat slowly, stop if becomes bloated encouraged ambulating in room and sitting up in chair Continue low fiber diet Continue p.o. antibiotics Follow-up as outpatient with surgery Will need a colonoscopy in the near future Admission and Anticipated Discharge Date Admission Date: September 05, 2021 Subjective Continues to feel better. Switch to oral antibiotics yesterday. Tolerating diet. Physical Exam Constitutional: WD/WN, vitals as above Eyes: PERRL, conjunctivae normal, anicteric sclerae Gastrointestinal (Abdomen): Inspection/Auscultation: abdomen normal to inspection; abdomen not distended Percussion/Palpation: + abdomen tender (Mild TTP in LLQ ) and abdomen soft; no guarding and abdomen not rigid Musculoskeletal: Extremities: no cyanosis and no clubbing Skin: no rashes, warm and dry Psychiatric: A+Ox3, euthymic affect Results & Data ([facility]) Vital Signs (Past 12 Hours) Vital Signs Temp Pulse Pulse Pulse Resp BP BP 09/09/21 12:38 36.8 C 75 64 59 L 16 106/64 124/75 09/09/21 07:52 36.8 C 59 L 16 106/64 Pulse Ox 09/09/21 12:38 96 09/09/21 07:52 96 (1) Diverticulitis large intestine Diverticulitis bleeding: without bleeding Diverticulitis complication: without perforation or abscess Qualified Code(s): K57.32 - Diverticulitis of large intestine without perforation or abscess without bleeding
== END 2021-09-09 15:00 | disposition home or self-care (01) | DRG 392 ==
LOC: ED 19:17 → 3N 09-05 03:45